=== PATIENT | female | born 1960 | race Caucasian/White ===

== ENCOUNTER 2017-12-11 12:15 | Inpatient (IN) | payer OTHER ==
[2017-12-11] MEDS ORDERED: ASPIRIN 325 MG TAB PO STA (12:52)
[2017-12-11 12:53] LABS: Basophils # (A) 0.1 k/uL (0-0.2); Basophils % (A) 1 %; Eosinophils # (A) 0.2 k/uL (0-0.7); Eosinophils % (A) 2 %; HCT 42.9 % (34.0-46.0); HGB 14.8 gm/dL (11.4-16.0); Lymphocytes % (A) 30 %; MCH 29.9 pg (25.0-35.0); MCHC 34.4 g/dL (31.0-37.0); MCV 86.8 fL (80.0-100.0); Mean Platelet Volume 7.4; Monocytes # (A) 0.6 k/uL (0-1.0); Monocytes % (A) 6 %; Neutrophils # (A) 6.1 k/uL (1.3-7.7); Neutrophils % (A) 60 %; Platelet Count 212 k/uL (150-450); RBC 4.95 m/uL (3.80-5.40); RDW 12.8 % (11.5-15.5); WBC 10.3 k/uL (3.8-10.6)
--- NOTE | 2017-12-11 12:57 | ED ---
General Adult HPI - General Chief complaint: Recheck/Abnormal Lab/Rx Stated complaint: Abnormal Cardiac Labs Time Seen by Provider: 12/11/17 12:22 Source: patient, RN notes reviewed, old records reviewed Mode of arrival: ambulatory Limitations: no limitations - History of Present Illness Initial comments: 57-year-old female presents with abnormal outpatient laboratory test. Patient was noted to have an elevated troponin by her primary care physician, this laboratory study was drawn yesterday. Was elevated at 9.57. Patient presents today for evaluation, she has had intermittent chest pain over the past one week. No history of coronary artery disease. Pain is described as a pressure both at rest and with exertion. Patient denies any pain complaints at the time my evaluation. She did have some associated dyspnea as well as diaphoresis which she attributed to her menopause. Patient is a current smoker. - Related Data Home Medications Medication Instructions Recorded Confirmed Albuterol Nebulized [Ventolin 2.5 mg INHALATION RT-QID PRN 12/11/17 12/11/17 Nebulized] Aspirin EC [Ecotrin Low Dose] 81 mg PO HS 12/11/17 12/11/17 Citalopram Hydrobromide [CeleXA] 10 mg PO HS 12/11/17 12/11/17 Cyclobenzaprine [Flexeril] 10 mg PO HS 12/11/17 12/11/17 Fluticasone Nasal [place] [Flonase 2 spr EA NOSTRIL DAILY 12/11/17 12/11/17 Nasal [place]] Omeprazole [PriLOSEC] 20 mg PO AC-BID 12/11/17 12/11/17 Allergies Allergy/AdvReac Type Severity Reaction Status Date / Time latex Allergy Rash/Hives Verified 12/11/17 13:11 Review of Systems ROS Statement: Those systems with pertinent positive or pertinent negative responses have been documented in the HPI. ROS Other: All systems not noted in ROS Statement are negative. Past Medical History Past Medical History: CVA/TIA Additional Past Medical History / Comment(s): right carotid stenosis History of Any Multi-Drug Resistant Organisms: None Reported Past Surgical History: Section, Cholecystectomy Past Psychological History: Anxiety, Depression Smoking Status: Current every day smoker Past Alcohol Use History: None Reported Past Drug Use History: None Reported General Exam Limitations: no limitations General appearance: alert, in no apparent distress Head exam: Present: atraumatic, normocephalic Eye exam: Present: normal appearance, PERRL ENT exam: Present: normal exam. Absent: normal oropharynx, mucous membranes dry Neck exam: Present: normal inspection. Absent: tenderness, meningismus Respiratory exam: Present: normal lung sounds bilaterally. Absent: respiratory distress, wheezes Cardiovascular Exam: Present: regular rate, normal rhythm. Absent: rubs GI/Abdominal exam: Present: soft. Absent: distended, tenderness, guarding Extremities exam: Present: normal inspection, normal capillary refill. Absent: pedal edema Back exam: Present: normal inspection Neurological exam: Present: alert, oriented X3, CN II-XII intact. Absent: motor sensory deficit Psychiatric exam: Present: normal affect, normal mood Skin exam: Present: warm, dry, intact. Absent: cyanosis, diaphoretic Course Vital Signs 12/11/17 12/11/17 12/11/17 12:16 13:10 13:51 Temperature 97.0 F L Pulse Rate 110 H 104 H 105 H Respiratory 18 18 18 Rate Blood Pressure 141/67 143/77 126/74 O2 Sat by Pulse 100 100 99 Oximetry EKG Findings - EKG Comments: EKG Findings:: EKG shows sinus tachycardia, rate of 108, AK interval 142, QS duration 74, QTC 471, there is Q waves in the inferior leads consistent with inferior infarction, no acute ST segment elevation or depression. Medical Decision Making - Medical Decision Making 57-year-old female presenting for evaluation of chest pain. Past week and elevated troponin on outpatient laboratory study testing. This was 9.57. Patient is chest pain-free at the time my evaluation. EKG does show Q waves in the inferior leads consistent with LA. There is no acute changes suggestive of current ischemia or infarction. CBC within normal limits, troponin within normal limits, troponin is 2.9 which is down trending. Chest x-ray negative. Case discussed with Dr. Morgan, recommends heparin, aspirin, Plavix, and echocardiogram. Patient will be admitted for further evaluation and treatment. - Lab Data Result diagrams: 12/11/17 12:40 12/11/17 12:40 Lab Results 12/11/17 12/11/17 12/11/17 Range/Units 12:40 12:40 12:40 WBC 10.3 (3.8-10.6) k/uL RBC 4.95 (3.80-5.40) m/uL Hgb 14.8 (11.4-16.0) gm/dL Hct 42.9 (34.0-46.0) % MCV 86.8 (80.0-100.0) fL MCH 29.9 (25.0-35.0) pg MCHC 34.4 (31.0-37.0) g/dL RDW 12.8 (11.5-15.5) % Plt Count 212 (150-450) k/uL Neutrophils % 60 % Lymphocytes % 30 % Monocytes % 6 % Eosinophils % 2 % Basophils % 1 % Neutrophils # 6.1 (1.3-7.7) k/uL Lymphocytes # 3.0 (1.0-4.8) k/uL Monocytes # 0.6 (0-1.0) k/uL Eosinophils # 0.2 (0-0.7) k/uL Basophils # 0.1 (0-0.2) k/uL PT (9.0-12.0) sec INR (<1.2) APTT (22.0-30.0) sec Sodium 137 (137-145) mmol/L Potassium 4.0 (3.5-5.1) mmol/L Chloride 102 (98-107) mmol/L Carbon Dioxide 24 (22-30) mmol/L Anion Gap 11 mmol/L BUN 16 (7-17) mg/dL Creatinine 0.90 (0.52-1.04) mg/dL Est GFR (MDRD) Af Amer >60 (>60 ml/min/1.73 sqM) Est GFR (MDRD) Non-Af >60 (>60 ml/min/1.73 sqM) Glucose 111 H (74-99) mg/dL Calcium 9.1 (8.4-10.2) mg/dL Total Bilirubin 0.5 (0.2-1.3) mg/dL AST 42 H (14-36) U/L ALT 22 (9-52) U/L Alkaline Phosphatase 80 (38-126) U/L Total Creatine Kinase 216 H (30-135) U/L CK-MB (CK-2) 13.0 H* (0.0-2.4) ng/mL CK-MB (CK-2) Rel Index 6.0 Troponin I 2.910 H* (0.000-0.034) ng/mL Total Protein 7.0 (6.3-8.2) g/dL Albumin 4.1 (3.5-5.0) g/dL 12/11/17 Range/Units 12:40 WBC (3.8-10.6) k/uL RBC (3.80-5.40) m/uL Hgb (11.4-16.0) gm/dL Hct (34.0-46.0) % MCV (80.0-100.0) fL MCH (25.0-35.0) pg MCHC (31.0-37.0) g/dL RDW (11.5-15.5) % Plt Count (150-450) k/uL Neutrophils % % Lymphocytes % % Monocytes % % Eosinophils % % Basophils % % Neutrophils # (1.3-7.7) k/uL Lymphocytes # (1.0-4.8) k/uL Monocytes # (0-1.0) k/uL Eosinophils # (0-0.7) k/uL Basophils # (0-0.2) k/uL PT 9.9 (9.0-12.0) sec INR 1.0 (<1.2) APTT 23.5 (22.0-30.0) sec Sodium (137-145) mmol/L Potassium (3.5-5.1) mmol/L Chloride (98-107) mmol/L Carbon Dioxide (22-30) mmol/L Anion Gap mmol/L BUN (7-17) mg/dL Creatinine (0.52-1.04) mg/dL Est GFR (MDRD) Af Amer (>60 ml/min/1.73 sqM) Est GFR (MDRD) Non-Af (>60 ml/min/1.73 sqM) Glucose (74-99) mg/dL Calcium (8.4-10.2) mg/dL Total Bilirubin (0.2-1.3) mg/dL AST (14-36) U/L ALT (9-52) U/L Alkaline Phosphatase (38-126) U/L Total Creatine Kinase (30-135) U/L CK-MB (CK-2) (0.0-2.4) ng/mL CK-MB (CK-2) Rel Index Troponin I (0.000-0.034) ng/mL Total Protein (6.3-8.2) g/dL Albumin (3.5-5.0) g/dL Critical Care Time Critical Care Time: Yes Total Critical Care Time: 35 Disposition Clinical Impression: NSTEMI (non-ST elevated myocardial infarction) Disposition: ADMITTED IP TO THIS [facility] Condition: Serious Referrals: Estefania Garg MD [Primary Care Provider] - 1-2 days Decision to Admit Reason: Admit from EC Decision Date: 12/11/17 Decision Time: 14:01
[2017-12-11 13:01] LABS: ALT 22 U/L (9-52); AST 42 U/L (14-36); Albumin 4.1 g/dL (3.5-5.0); Alkaline Phosphatase 80 U/L (38-126); Anion Gap 11 mmol/L; Blood Urea Nitrogen 16 mg/dL (7-17); Calcium 9.1 mg/dL (8.4-10.2); Carbon Dioxide 24 mmol/L (22-30); Chloride 102 mmol/L (98-107); Glucose 111 mg/dL (74-99); Sodium 137 mmol/L (137-145); Total Bilirubin 0.5 mg/dL (0.2-1.3)
[2017-12-11 13:05] LABS: Partial Thromboplastin Time 23.5 sec (22.0-30.0); Prothrombin Time 9.9 sec (9.0-12.0)
[2017-12-11] MEDS ORDERED: HEPARIN SODIUM,PORCINE 5,000 UNIT/ML 1 ML VIAL IV ONE (13:06)
[2017-12-11] MEDS ORDERED: HEPARIN SODIUM,PORCINE 5,000 UNIT/ML 1 ML VIAL IV PRN (13:06)
--- NOTE | 2017-12-11 13:07 | XR ---
EXAMINATION TYPE: XR chest 2V DATE OF EXAM: 12/11/2017 COMPARISON: 12/11/2009 HISTORY: 57-year-old female coughing congestion, altered mental status TECHNIQUE: PA and lateral views FINDINGS: The cardiomediastinal silhouette, aorta, and pulmonary vasculature are within normal limits. Mild hyp erinflation. No consolidation or pleural effusion. IMPRESSION: Mild hyperinflation may relate to depth of inspiration or underlying emphysema. No acute cardiopulmon hunter process.
[2017-12-11] MEDS: SODIUM CHLORIDE 0.9% 1,000 ML IV SCH (13:08)
[2017-12-11] MEDS ORDERED: ATORVASTATIN 80 MG TAB PO STA (13:21)
[2017-12-11] MEDS ORDERED: CLOPIDOGREL 75 MG TAB PO STA (13:21)
[2017-12-11 13:32] LABS: Troponin I 2.91 ng/mL (0.000-0.034)
[2017-12-11] MEDS: HEPARIN SOD,PORK IN 0.45% NACL 25,000 UNIT in 0.45% NACL 1 500ML.BAG IV SCH (13:46)
[2017-12-11] MEDS ORDERED: MORPHINE SULFATE 4 MG/ML SYRINGE IVP PRN (13:56)
[2017-12-11] MEDS ORDERED: NITROGLYCERIN SL TABS 0.4 MG TAB SUBLINGUAL PRN (13:56)
[2017-12-11] MEDS ORDERED: ALBUTEROL NEBULIZED 2.5 MG/3 ML INHALATION PRN (15:29)
--- NOTE | 2017-12-11 15:44 | P.HPIM ---
History of Present Illness H&P Date: 12/11/17 Chief Complaint: Chest pain This is a 57-year-old female, patient of Dr. Garg. She has a known past medical history of nicotine dependence, acid reflux and TIA. Patient presents to the emergency room after being notified about abnormal troponin level from outpatient laboratory tests. Patient went to see her PCP yesterday because she had been having episodes of intermittent chest pain since last Sunday. She thought that it was acid reflux problems. She was taking Tums with no improvement. Patient also reports having pain in the left shoulder and acid reflux-like symptoms going up into her neck. Patient also noted increasing chest pain in the center of her chest while cleaning the bathroom this morning. She was notified by her PCP this morning that her troponin level was elevated and needed to go to the emergency room. Troponin level was 9.57. She has no history of myocardial infarction or coronary artery disease. She does have a history of right internal carotid artery stenosis which is followed by her PCP. And she takes a daily baby aspirin. Patient also reports having episodes of diaphoresis but contributed it to her menopause. First troponin is 2.910. EKG shows sinus tachycardia with a heart rate of 108, anterior infarct age undetermined. Q waves are noted in the inferior leads. Cardiology consulted. Patient has been placed on IV heparin, aspirin, Plavix and Lipitor in the emergency room. An echocardiogram ordered. Patient denies any fever or chills. Denies cough, denies any bowel movement changes or urinary symptoms. Does report a family history with a mom who had a heart attack at age 60,dad who had a heart attack in his 70s and a brother who had a triple bypass in his 60s. Patient thinks she may have had a stress test about 10 years ago that was negative. Chest x-ray revealing mild hyperinflation may relate to depth of inspiration or underlying emphysema. No acute cardiopulmonary process Review of Systems Please refer to HPI otherwise unremarkable Past Medical History Past Medical History: CVA/TIA Additional Past Medical History / Comment(s): right carotid stenosis, TIA History of Any Multi-Drug Resistant Organisms: None Reported Past Surgical History: Section, Cholecystectomy Past Psychological History: Anxiety, Depression Smoking Status: Current every day smoker Past Alcohol Use History: None Reported Past Drug Use History: None Reported Medications and Allergies Home Medications Medication Instructions Recorded Confirmed Type Albuterol Nebulized [Ventolin 2.5 mg INHALATION RT-QID PRN 12/11/17 12/11/17 History Nebulized] Aspirin EC [Ecotrin Low Dose] 81 mg PO HS 12/11/17 12/11/17 History Citalopram Hydrobromide [CeleXA] 10 mg PO HS 12/11/17 12/11/17 History Cyclobenzaprine [Flexeril] 10 mg PO HS 12/11/17 12/11/17 History Fluticasone Nasal [place] [Flonase 2 spr EA NOSTRIL DAILY 12/11/17 12/11/17 History Nasal [place]] Omeprazole [PriLOSEC] 20 mg PO AC-BID 12/11/17 12/11/17 History Allergies Allergy/AdvReac Type Severity Reaction Status Date / Time latex Allergy Rash/Hives Verified 12/11/17 13:11 Physical Exam Vitals: Vital Signs Temp Pulse Resp BP Pulse Ox 12/11/17 14:38 98 18 129/76 99 12/11/17 13:51 105 H 18 126/74 99 12/11/17 13:10 104 H 18 143/77 100 12/11/17 12:16 97.0 F L 110 H 18 141/67 100 Intake and Output 12/11/17 12/11/17 12/11/17 06:59 14:59 22:59 Other: Weight 59.421 kg Patient Weight 12/12/17 06:59 Weight 59.421 kg Head normocephalic Neck supple Lungs clear to auscultation bilaterally no wheezing or crackles Heart regular rate and rhythm S1-S2, no rub or gallop Abdomen is soft nontender nondistended positive bowel sounds no hepatosplenomegaly Extremities no edema Neuro alert and orientated to 3 Results CBC & Chem 7: 12/11/17 12:40 12/11/17 12:40 Labs: Abnormal Lab Results - Last 24 Hours (Table) 12/11/17 12/11/17 Range/Units 12:40 12:40 Glucose 111 H (74-99) mg/dL AST 42 H (14-36) U/L Total Creatine Kinase 216 H (30-135) U/L CK-MB (CK-2) 13.0 H* (0.0-2.4) ng/mL Troponin I 2.910 H* (0.000-0.034) ng/mL Assessment and Plan Assessment: 1. Acute non-ST elevated myocardial infarction: Outpatient troponin level elevated at 9.57. On admission troponin 2.910 continue to monitor cardiac enzymes. Cardiology consulted. Patient is to continue IV heparin, Plavix, aspirin and Lipitor. Patient also started on beta miguelito in the emergency room 2. History of TIA continue aspirin 3. History of right internal carotid artery stenosis. Has carotid ultrasounds completed by her PCP and was told recently that there was no change 4. Generalized anxiety disorder and depression continue Celexa 5. GERD continue Protonix 6. Nicotine dependence: Discussed smoking cessation for greater than 3 minutes. Add nicotine patch Time with Patient: Greater than 30 (Greater than 50% of the total time spent in counseling and coordination of care.I performed an examination of the patient and discussed their management with the physician Machine Clipper. I have reviewed the Physician Machine Clipper's notes and agree with the documented findings and plan of care)
[2017-12-11] MEDS: NICOTINE 21MG/24HR PATCH TRANSDERM SCH (17:44)
[2017-12-11 20:10] LABS: Creatine Kinase MB 15.2 ng/mL (0.0-2.4)
[2017-12-11 20:11] LABS: Troponin I 5.26 ng/mL (0.000-0.034)
[2017-12-11] MEDS: METOPROLOL TARTRATE 25 MG TAB PO SCH (21:34)
[2017-12-11] MEDS: CITALOPRAM HYDROBROMIDE 10 MG TAB PO SCH (21:34)
[2017-12-11] MEDS: CYCLOBENZAPRINE 10 MG TAB PO SCH (21:34)
[2017-12-12 02:44] LABS: Creatine Kinase MB 11.9 ng/mL (0.0-2.4); Troponin I 5.92 ng/mL (0.000-0.034)
[2017-12-12] MEDS: SODIUM CHLORIDE 0.9% 1,000 ML IV SCH ×3 (05:41→15:55)
[2017-12-12 06:10] LABS: Basophils # (A) 0.1 k/uL (0-0.2); Basophils % (A) 1 %; Eosinophils # (A) 0.3 k/uL (0-0.7); Eosinophils % (A) 3 %; HCT 39.5 % (34.0-46.0); HGB 13.1 gm/dL (11.4-16.0); Lymphocytes # (A) 3.5 k/uL (1.0-4.8); Lymphocytes % (A) 39 %; MCH 29.2 pg (25.0-35.0); MCHC 33.1 g/dL (31.0-37.0); MCV 88.1 fL (80.0-100.0); Mean Platelet Volume 7.5; Monocytes # (A) 0.5 k/uL (0-1.0); Monocytes % (A) 6 %; Neutrophils # (A) 4.5 k/uL (1.3-7.7); Neutrophils % (A) 50 %; Platelet Count 190 k/uL (150-450); RBC 4.49 m/uL (3.80-5.40)
[2017-12-12 06:42] LABS: ALT 26 U/L (9-52); AST 43 U/L (14-36); Albumin 3.3 g/dL (3.5-5.0); Alkaline Phosphatase 77 U/L (38-126); Anion Gap 5 mmol/L; Blood Urea Nitrogen 13 mg/dL (7-17); Calcium 8.6 mg/dL (8.4-10.2); Carbon Dioxide 25 mmol/L (22-30); Chloride 109 mmol/L (98-107); Cholesterol 127 mg/dL (<200); Glucose 103 mg/dL (74-99); HDL Cholesterol 37 mg/dL (40-60); LDL Cholesterol,Calculated 73 mg/dL (0-99); Potassium 4.2 mmol/L (3.5-5.1); Sodium 139 mmol/L (137-145); Total Bilirubin 0.2 mg/dL (0.2-1.3); Total Protein 5.8 g/dL (6.3-8.2); Triglycerides 83 mg/dL (<150)
[2017-12-12] MEDS: METOPROLOL TARTRATE 25 MG TAB PO SCH ×2 (07:55→21:33)
[2017-12-12] MEDS: NICOTINE 21MG/24HR PATCH TRANSDERM SCH (07:55)
[2017-12-12] MEDS: FLUTICASONE 50MCG/SPRAY NASAL 16GM EA NOSTRIL SCH (07:56)
[2017-12-12] MEDS: PANTOPRAZOLE 40 MG TABLET PO SCH (07:57)
[2017-12-12] MEDS: CLOPIDOGREL 75 MG TAB PO SCH (07:59)
[2017-12-12] MEDS ORDERED: ASPIRIN 325 MG TAB PO SCH (09:00)
--- NOTE | 2017-12-12 09:24 | P.CRDCN ---
History of Present Illness Consult date: 12/12/17 Requesting physician: Karma Gonzalez Reason for Consult (text): NSTEMI Chief complaint: chest pain History of present illness: Pleasant 57-year-old female patient with history of smoking, currently smokes about a pack a day, TIA about 10 years ago and some right carotid stenosis which is being followed by her primary care physician. Developed some intermittent indigestion-like midsternal chest discomfort that radiated to her neck without any associated dyspnea, diaphoresis, dizziness or syncope. She presented to her primary care physician's office on Sunday, December 10 with complaints of the same at which time she was given Maalox with some relief and EKG was done and labs were drawn. She was called yesterday morning December 11 by her primary care physician to present to the emergency department due to elevated troponin of around 9. Upon presentation to the emergency department an EKG was done that showed sinus rhythm with Q waves in the inferior leads. Subsequent troponins were drawn and came back at 2.91, 5.26 and 5.92. Chest x-ray showed mild hyperinflation. At the time of my examination, patient is resting comfortably in bed. She denies any further complaints of the indigestion-like pain but has had some intermittent left lateral chest tightness. Past Medical History Past Medical History: CVA/TIA, GERD/Reflux, Osteoarthritis (OA) Additional Past Medical History / Comment(s): arthrits (neck)right carotid stenosis, TIA, recent sinus infections"took 4 rounds of abx and some steroids ) History of Any Multi-Drug Resistant Organisms: None Reported Past Surgical History: Appendectomy, Section, Cholecystectomy Additional Past Surgical History / Comment(s): x2 Past Anesthesia/Blood Transfusion Reactions: Previous Problems w/ Anesthesia Additional Past Anesthesia/Blood Transfusion Reaction / Comment(s): "spinal headache" lasted 12 hours Smoking Status: Current every day smoker - Past Family History Mother Family Medical History: Cancer, Coronary Artery Disease (CAD), Diabetes Mellitus , Myocardial Infarction (LA) Additional Family Medical History / Comment(s): leukemia Father Family Medical History: Coronary Artery Disease (CAD), CVA/TIA, Hypertension, Myocardial Infarction (LA) Additional Family Medical History / Comment(s): quad cabg and valve replacement Medications and Allergies Home Medications Medication Instructions Recorded Confirmed Type Albuterol Nebulized [Ventolin 2.5 mg INHALATION RT-QID PRN 12/11/17 12/11/17 History Nebulized] Aspirin EC [Ecotrin Low Dose] 81 mg PO HS 12/11/17 12/11/17 History Citalopram Hydrobromide [CeleXA] 10 mg PO HS 12/11/17 12/11/17 History Cyclobenzaprine [Flexeril] 10 mg PO HS 12/11/17 12/11/17 History Fluticasone Nasal [place] [Flonase 2 spr EA NOSTRIL DAILY 12/11/17 12/11/17 History Nasal [place]] Omeprazole [PriLOSEC] 20 mg PO AC-BID 12/11/17 12/11/17 History Allergies Allergy/AdvReac Type Severity Reaction Status Date / Time latex Allergy Rash/Hives Verified 12/11/17 13:11 Physical Exam Vitals: Vital Signs Temp Pulse Pulse Resp BP BP Pulse Ox 12/12/17 07:48 97 F L 71 18 136/74 93 L 12/12/17 04:15 87 18 12/12/17 04:10 97.5 F L 87 18 132/74 95 12/11/17 23:57 81 18 12/11/17 23:51 98.5 F 81 18 108/53 95 12/11/17 20:15 98.1 F 81 18 123/81 96 12/11/17 15:00 97.3 F L 101 H 18 142/88 97 12/11/17 14:38 98 18 129/76 99 12/11/17 13:51 105 H 18 126/74 99 12/11/17 13:10 104 H 18 143/77 100 12/11/17 12:16 97.0 F L 110 H 18 141/67 100 Intake and Output 12/11/17 12/12/17 12/12/17 22:59 06:59 14:59 Intake Total 351.466 Balance 351.466 Intake: Intake, IV Titration 111.466 Amount Heparin Sod,Pork in 0.45% 111.466 NaCl 25,000 unit In 0.45 % NaCl 1 500ml.bag @ 12 UNITS/KG/HR 14.26 mls/hr IV .Q24H [facility]INA Rx#: [id number] Oral 240 Other: Voiding Method Toilet Toilet # Voids 0 1 Weight 59.9 kg Patient Weight 12/13/17 06:59 Weight 59.9 kg PHYSICAL EXAMINATION: HEENT: Head is atraumatic, normocephalic. Pupils equal, round. Neck is supple. There is no elevated jugular venous pressure. HEART EXAMINATION: Heart sounds regular, S1 and S2 with a systolic ejection murmur heard at the base. CHEST EXAMINATION: Lungs are clear to auscultation and precussion. No chest wall tenderness is noted on palpation or with deep breathing. ABDOMEN: Soft, nontender. Bowel sounds are heard. No organomegaly noted. EXTREMITIES: 2+ peripheral pulses with no evidence of peripheral edema and no calf tenderness noted. NEUROLOGIC patient is awake, alert and oriented x3. . Results 12/12/17 05:33 12/12/17 05:33 Cardiac Enzymes 12/11/17 12/11/17 12/11/17 Range/Units 12:40 12:40 19:17 AST 42 H (14-36) U/L CK-MB (CK-2) 13.0 H* 15.2 H* (0.0-2.4) ng/mL Troponin I 2.910 H* 5.260 H* (0.000-0.034) ng/mL 12/12/17 12/12/17 Range/Units 01:25 05:33 AST 43 H (14-36) U/L CK-MB (CK-2) 11.9 H* (0.0-2.4) ng/mL Troponin I 5.920 H* (0.000-0.034) ng/mL Coagulation 12/11/17 12/11/17 12/12/17 Range/Units 12:40 19:17 01:25 PT 9.9 (9.0-12.0) sec APTT 23.5 43.4 H 58.0 H (22.0-30.0) sec 12/12/17 Range/Units 05:37 PT (9.0-12.0) sec APTT 63.1 H (22.0-30.0) sec Lipids 12/12/17 Range/Units 05:33 Triglycerides 83 (<150) mg/dL Cholesterol 127 (<200) mg/dL HDL Cholesterol 37 L (40-60) mg/dL CBC 12/11/17 12/12/17 Range/Units 12:40 05:33 WBC 10.3 9.0 (3.8-10.6) k/uL RBC 4.95 4.49 (3.80-5.40) m/uL Hgb 14.8 13.1 (11.4-16.0) gm/dL Hct 42.9 39.5 (34.0-46.0) % Plt Count 212 190 (150-450) k/uL Comprehensive Metabolic Panel 12/11/17 12/12/17 Range/Units 12:40 05:33 Sodium 137 139 (137-145) mmol/L Potassium 4.0 4.2 (3.5-5.1) mmol/L Chloride 102 109 H (98-107) mmol/L Carbon Dioxide 24 25 (22-30) mmol/L BUN 16 13 (7-17) mg/dL Creatinine 0.90 0.80 (0.52-1.04) mg/dL Glucose 111 H 103 H (74-99) mg/dL Calcium 9.1 8.6 (8.4-10.2) mg/dL AST 42 H 43 H (14-36) U/L ALT 22 26 (9-52) U/L Alkaline Phosphatase 80 77 (38-126) U/L Total Protein 7.0 5.8 L (6.3-8.2) g/dL Albumin 4.1 3.3 L (3.5-5.0) g/dL Current Medications Generic Name Dose Route Start Last Admin Trade Name Freq PRN Reason Stop Dose Admin Albuterol Sulfate 2.5 mg 12/11/17 15:29 Ventolin Nebulized INHALATION RT-QID PRN Shortness Of Breath Aspirin 325 mg 12/12/17 09:00 12/12/17 07:59 Aspirin PO 325 mg DAILY BETINA Administration Citalopram Hydrobromide 10 mg 12/11/17 21:00 12/11/17 21:34 Celexa PO 10 mg HS BETINA Administration Clopidogrel Bisulfate 75 mg 12/12/17 09:00 12/12/17 07:59 Plavix PO 75 mg DAILY BETINA Administration Cyclobenzaprine HCl 10 mg 12/11/17 21:00 12/11/17 21:34 Flexeril PO 10 mg HS BETINA Administration Fluticasone Propionate 2 spray 12/12/17 09:00 12/12/17 07:56 Flonase Nasal [place] EA NOSTRIL Not Given DAILY BETINA Heparin Sodium (Porcine) 0 unit 12/11/17 13:06 Heparin IV PER PROTOCOL PRN Low PTT Protocol Sodium Chloride 1,000 mls @ 75 mls/hr 12/11/17 13:00 12/12/17 05:41 Saline 0.9% IV 75 mls/hr .[id number] BETINA Administration Heparin Sodium/Sodium Chloride 500 mls @ 14.26 mls/hr 12/11/17 13:15 21:35 25,000 unit/ Sodium Chloride IV 14 units/kg/hr .Q24H [facility]INA 16.63 mls/hr Protocol Titration 12 UNITS/KG/HR Metoprolol Tartrate 25 mg 12/11/17 21:00 12/12/17 07:55 Lopressor PO 25 mg BID BETINA Administration Morphine Sulfate 2 mg 12/11/17 13:56 Morphine Sulfate (Inj) IVP Q5M PRN Chest Pain Nicotine 1 patch 12/11/17 15:30 12/12/17 07:55 Habitrol 21mg/24hr Patch TRANSDERM 1 patch DAILY BETINA Administration Nitroglycerin 0.4 mg 12/11/17 13:56 Nitrostat SUBLINGUAL Q5M PRN Chest Pain Pantoprazole Sodium 40 mg 12/12/17 07:30 12/12/17 07:57 Protonix PO 40 mg [id number] BETINA Administration Intake and Output 12/11/17 12/12/17 12/12/17 22:59 06:59 14:59 Intake Total 351.466 Balance 351.466 Intake: Intake, IV Titration 111.466 Amount Heparin Sod,Pork in 0.45% 111.466 NaCl 25,000 unit In 0.45 % NaCl 1 500ml.bag @ 12 UNITS/KG/HR 14.26 mls/hr IV .Q24H [facility] Rx#: [id number] Oral 240 Other: Voiding Method Toilet Toilet # Voids 0 1 Weight 59.9 kg Patient Weight 12/13/17 06:59 Weight 59.9 kg 12/12/17 05:33 12/12/17 05:33 EKG Interpretations (text) Sinus rhythm with evidence of prior inferior LA Assessment and Plan Assessment: #1 non-ST elevated LA with a troponin of around 9 two days ago at her primary care physician's office, most recent troponin of 5.9 #2 nicotine dependence #3 history of TIA #4 History of right carotid stenosis Plan: From steeping press tender perspective, we will continue IV heparin. We will review the 2-D echo with Doppler. Patient will go cardiac catheterization by Dr. TUCKER Morgan today. Discussed in detail risks, including infection, bleeding, stroke, LA and damage to artery as well as benefits in detail with the patient. She is in agreement. Further recommendations depending on findings of a catheterization and patient's clinical course. RANGE RIDER note has been reviewed, I agree with a documented findings and plan of care. Patient was seen and examined.
[2017-12-12] MEDS ORDERED: ATORVASTATIN 80 MG TAB PO STA (09:48)
[2017-12-12] MEDS ORDERED: ALPRAZolam 0.25 MG TAB PO PRN (09:48)
[2017-12-12] MEDS ORDERED: ALPRAZolam 0.5 MG TAB PO PRN (09:48)
[2017-12-12 11:49] LABS: Glucose,Whole Blood 85 mg/dL (75-99)
--- NOTE | 2017-12-12 11:53 | ECHOF ---
Referral Reason:CP/NSTEMI MEASUREMENTS -------- HEIGHT: 152.4 cm WEIGHT: 59.4 kg BP: 126/74 RVIDd: 2.4 cm (< 3.3) IVSd: 1.2 cm (0.6 - 1.1) LVIDd: 3.7 cm (3.9 - 5.3) LVPWd: 1.2 cm (0.6 - 1.1) IVSs: 1.5 cm LVIDs: 2.8 cm LVPWs: 1.5 cm LAESV Index (A-L): 17.11 ml/m Ao Diam: 2.6 cm (2.0 - 3.7) AV Cusp: 0.9 cm (1.5 - 2.6) LA Diam: 3.6 cm (2.7 - 3.8) MV E Johnathon: 0.89 m/s MV DecT: 381 ms MV A Johnathon: 1.64 m/s MV E/A Ratio: 0.54 AV maxP.42 mmHg AV meanP.21 mmHg RAP: 5.00 mmHg RVSP: 15.67 mmHg FINDINGS -------- Sinus rhythm. This was a technically adequate study. The left ventricular size is normal. There is mild concentric left ventricular hypertrophy. Overa ll left ventricular systolic function is low-normal with, an EF between 50 - 55 %. The right ventricle is normal in size and function. Normal LA size by volume 22+/-6 ml/m2. The right atrium is normal in size. Aortic valve is trileaflet and is moderately thickened. Trace to mild aortic regurgitation. There is mild aortic stenosis present. Peak/mean gradient across the Aortic Valve is 24.42mmHg / 14.21mm Hg. The mitral valve leaflets are mildly thickened. There is trace to mild mitral regurgitation. Trace tricuspid regurgitation present. Right ventricular systolic pressure is normal at < 35 mmHg. There is no evidence of pulmonary hypertension. The pulmonic valve was not well visualized. The aortic root size is normal. Normal inferior vena cava with normal inspiratory collapse consistent with estimated right atrial pre ssure of 5 mmHg. There is a small, generalized pericardial effusion present. CONCLUSIONS -------- 1. Sinus rhythm. 2. This was a technically adequate study. 3. The left ventricular size is normal. 4. There is mild concentric left ventricular hypertrophy. 5. Overall left ventricular systolic function is low-normal with, an EF between 50 - 55 %. 6. Normal LA size by volume 22+/-6 ml/m2. 7. Aortic valve is trileaflet and is moderately thickened. 8. Trace to mild aortic regurgitation. 9. There is mild aortic stenosis present. 10. Peak/mean gradient across the Aortic Valve is 24.42mmHg / 14.21mmHg. 11. The mitral valve leaflets are mildly thickened. 12. There is trace to mild mitral regurgitation. 13. Trace tricuspid regurgitation present. 14. Right ventricular systolic pressure is normal at < 35 mmHg. 15. There is no evidence of pulmonary hypertension. 16. The pulmonic valve was not well visualized. 17. The aortic root size is normal. CLASSROOM TEACHER: Titus King RDCS
[2017-12-12] MEDS ORDERED: LIDOCAINE 2% INJ 20 MG/ML (20 ML MDV) ONE (13:02)
[2017-12-12] MEDS ORDERED: MIDAZOLAM 2 MG/2 ML VIAL ONE (13:16)
[2017-12-12] MEDS ORDERED: diphenhydrAMINE 50 MG/ML 1 ML VIAL ONE (13:16)
[2017-12-12] MEDS ORDERED: SODIUM CHLORIDE 0.9% 500 ML IV ONE (13:25)
[2017-12-12] MEDS ORDERED: MIDAZOLAM 2 MG/2 ML VIAL IV ONE (13:43)
[2017-12-12] MEDS ORDERED: diphenhydrAMINE 50 MG/ML 1 ML VIAL IVP ONE (13:43)
[2017-12-12] MEDS ORDERED: LIDOCAINE 2% INJ 20 MG/ML SQ ONE (13:47)
[2017-12-12] MEDS ORDERED: BIVALIRUDIN BOLUS 250 MG/50 ML IV ONE (14:00)
[2017-12-12] MEDS ORDERED: BIVALIRUDIN 250 MG in SODIUM CHLORIDE 0.9% 50 ML IV ONE (14:03)
[2017-12-12] MEDS: NITROGLYCERIN 1000MCG/10ML SYRINGE INTRACORON ONE ×2 (14:08→14:20)
[2017-12-12] MEDS ORDERED: CLOPIDOGREL 75 MG TAB ONE (14:17)
[2017-12-12] MEDS ORDERED: CLOPIDOGREL 75 MG TAB PO ONE (14:20)
[2017-12-12] MEDS ORDERED: niCARdipine 25 MG/10 ML VIAL ONE (14:20)
[2017-12-12] MEDS ORDERED: niCARdipine Syringe (1,000 mcg/10 mL) INTRACORON ONE (14:23)
[2017-12-12] MEDS ORDERED: amLODIPine 5 MG TAB ONE (14:24)
[2017-12-12] MEDS ORDERED: MAG HYDROX/AL HYDROX/SIMETH 30 ML CUP PO PRN (14:34)
[2017-12-12] MEDS ORDERED: ATROPINE SULFATE 0.1 MG/ML 10ML SYRINGE IV PRN (14:34)
[2017-12-12] MEDS ORDERED: NITROGLYCERIN SL TABS 0.4 MG TAB SUBLINGUAL PRN (14:34)
[2017-12-12] MEDS ORDERED: ZOLPIDEM 5 MG TAB PO PRN (14:34)
[2017-12-12] MEDS ORDERED: RX INFO: IV CONTRAST WAS GIVEN 1 EACH MISC MISCELLANE PRN (14:34)
[2017-12-12] MEDS ORDERED: IOHEXOL 350 MG/ML (PER ML) 100ML BTL INJ ONE (14:41)
[2017-12-12] MEDS ORDERED: IODIXANOL 320 MG/ML 100 ML INTRAARTER ONE (14:41)
[2017-12-12] MEDS ORDERED: HYDROcodone/APAP 5-325MG 1 EACH TAB PO PRN (15:10)
--- NOTE | 2017-12-12 15:19 | CC ---
CARDIAC CATHETERIZATION REPORT DATE OF SERVICE: 12/12/2017. PROCEDURE: 1. Left heart catheterization, coronary angiography. 2. PTCA and stenting of a mid dominant RCA with a drug-eluting stent. PERFORMED BY: Dr. Katina Morgan. Moderate conscious sedation time about 45 minutes. Patient was monitored closely. Oxygen saturation, vital signs and rhythm strips were watched closely. CLINICAL INFORMATION: Olivia Baez is a 57-year-old lady who weighs about 60 kg. She smokes a pack a day. Has also some bronchial asthma. She takes some inhalers. No other medicines. She went to her family doctor with complaints of nondescript, left-sided chest pain. She was sent home after obtaining a troponin level that was checked later and then she was asked to go to the emergency room. She did have chest pain but on arrival to the ER, her pain was pretty much all gone. She complained of a nondescript achy sensation in the chest when I saw her this morning. Her troponin was up to 9. It came back down and it was hovering around 5.2 today. She was hemodynamically stable and comfortable. She was counseled regarding the need to quit smoking. She was advised coronary angiography and PCI. She understood all the risks, benefits, options and wished to proceed. PROCEDURE NOTE: Under local anesthesia and strict aseptic precautions, a 6-St Helenian introducer was placed in the right femoral artery. Using standard Joyce catheters, I performed coronary angiography. Using a pigtail catheter, I checked LV pressures. I did not perform an LV-gram. Following this, I went ahead and performed PCI of a mid RCA lesion. At the end of the procedure, an Angio-Seal device with secure hemostasis and she was sent to the room in a stable condition. Results were discussed with the patient, but there was no other family members available. Mid RCA had a significant lesion with a thrombus and this was addressed with a drug-eluting stent, which was a Xience 3.0 caliber 15 mm length. CARDIAC CATHETERIZATION FINDINGS: 1. RIGHT CORONARY ARTERY: Large dominant vessel in the midportion before bifurcation, there is an eccentric 80% stenosis with thrombus and after this stenosis, the flow is very sluggish and the vessels look much smaller distally. In the proximal 1/3, there is a diffuse area of narrowing of anywhere from 30% to 45%. RCA is a dominant vessel. After bifurcation, both the vessels are large in caliber, the PDA and PLV and sizable amount of myocardium. 2. LEFT MAIN CORONARY ARTERY: This is a short patent vessel free of significant disease that immediately bifurcates into LAD and circumflex. 3. LEFT ANTERIOR DESCENDING CORONARY ARTERY: Good caliber vessel extends along the anterior wall and gives off smaller diagonal branches proximally. In the midportion, it gives off a small diagonal branch and then there is an eccentric 40% narrowing after which the caliber improves and vessel runs all the way to the apex supplying a sizable amount of myocardium. The LAD, therefore in the midportion has a 40% lesion, but no other significant disease. There are minor irregularities in the distal 1/3. 4. LEFT POSTERIOR CIRCUMFLEX CORONARY ARTERY: Technically nondominant vessel, gives off a large obtuse marginal that runs laterally and then a branch in the AV groove. No significant disease. 5. Left ventriculogram was not performed. The left ventricular end-diastolic pressure was about 18 to 20 mmHg without any gradient across the aortic valve. PCI DETAILS: A standard right Joyce type guide catheter was used to cannulate the right coronary artery. A BMW wire was used to cross the lesion. Patient received Angiomax bolus and infusion as per protocol; 450 mg of Plavix was given. Patient weighs about 60 kg and she already received 150 Plavix in the last 12 hours. I used a 2.5 caliber 12 mm Trek balloon to pre-dilate the lesion. After nitroglycerin, the vessel looked very large. A 3.0 caliber 15 mm long Xience stent was deployed with excellent angiographic result. Patient had EKG changes, but off ST elevation in inferior leads without significant chest pain. Excellent angiographic result was achieved. Results were discussed with the patient. Smoking cessation issues were discussed and she will be sent to the room in a stable condition. MMODL / IJN: [id number] /
--- NOTE | 2017-12-12 15:22 | LTR ---
DATE OF SERVICE: 12/12/2016 RE: Olivia Baez Dear Dr. Garg: Thank you for the opportunity to participate in the care of Mrs. Olivia Baez. I am pleased to report to you that she had an excellent angiographic result. Her 80% RCA was addressed with a drug-eluting stent with excellent result. The echocardiogram did not reveal any significant LV dysfunction. Continued medical therapy with risk factor modification is advised and I expect to discharge the patient tomorrow. She has been counseled regarding the need to quit smoking. Thank you for a referral and please call for questions. With kindest regards, Sincerely yours, MD CARISSA JohnsonL / ERICHN: [id number] /
[2017-12-12] MEDS ORDERED: MORPHINE ORAL SOLN 10 MG/5 ML CUP PO PRN (15:29)
[2017-12-12] MEDS: HEPARIN SOD,PORK IN 0.45% NACL 25,000 UNIT in 0.45% NACL 1 500ML.BAG IV SCH (15:38)
[2017-12-12] MEDS: LOSARTAN 50 MG TAB PO SCH (15:54)
--- NOTE | 2017-12-12 16:21 | P.PN ---
Subjective Patient is doing well today. No events overnight. Objective - Vital Signs Vital signs: Vital Signs Temp 97.8 F 12/12/17 14:34 Pulse 88 12/12/17 15:19 Resp 20 12/12/17 14:34 BP 143/88 12/12/17 15:19 Pulse Ox 95 12/12/17 15:19 Intake & Output 12/11/17 12/12/17 12/12/17 18:59 06:59 18:59 Intake Total 240 111.466 341 Output Total 200 Balance 240 111.466 141 Weight 59.421 kg 59.9 kg Intake: IV 341 Heparin Sod,Pork in 0.45% 42 NaCl 25,000 unit In 0.45 % NaCl 1 500ml.bag @ 12 UNITS/KG/HR 14.26 mls/hr IV .Q24H BETINA Rx#: [id number] Sodium Chloride 0.9% 1, 225 000 ml @ 75 mls/hr IV . [id number] BETINA Rx#:[id number] Intake, IV Titration 111.466 Amount Heparin Sod,Pork in 0.45% 111.466 NaCl 25,000 unit In 0.45 % NaCl 1 500ml.bag @ 12 UNITS/KG/HR 14.26 mls/hr IV .Q24H BETINA Rx#: [id number] Oral 240 Output: Urine 200 Other: Voiding Method Toilet Toilet Toilet # Voids 0 1 2 - Exam General: The patient is awake and alert, in no distress Eye: there is normal conjunctiva bilaterally. Neck: The neck is supple, there is no JVD. Cardiovascular: Normal S1-S2, no S3-S4, no murmurs. Respiratory: Lungs clear to auscultation bilaterally Gastrointestinal: Abdomen is soft, nontender Musculoskeletal: There is no pedal edema. Neurological:. Speech is normal. Skin: Skin is warm and dry - Labs CBC & Chem 7: 12/12/17 05:33 12/12/17 05:33 Labs: Abnormal Lab Results - Last 24 Hours (Table) 12/11/17 12/11/17 12/12/17 Range/Units 19:17 19:17 01:25 APTT 43.4 H (22.0-30.0) sec Chloride (98-107) mmol/L Glucose (74-99) mg/dL AST (14-36) U/L Total Creatine Kinase 240 H 212 H (30-135) U/L CK-MB (CK-2) 15.2 H* 11.9 H* (0.0-2.4) ng/mL Troponin I 5.260 H* 5.920 H* (0.000-0.034) ng/mL Total Protein (6.3-8.2) g/dL Albumin (3.5-5.0) g/dL HDL Cholesterol (40-60) mg/dL 12/12/17 12/12/17 12/12/17 Range/Units 01:25 05:33 05:37 APTT 58.0 H 63.1 H (22.0-30.0) sec Chloride 109 H (98-107) mmol/L Glucose 103 H (74-99) mg/dL AST 43 H (14-36) U/L Total Creatine Kinase (30-135) U/L CK-MB (CK-2) (0.0-2.4) ng/mL Troponin I (0.000-0.034) ng/mL Total Protein 5.8 L (6.3-8.2) g/dL Albumin 3.3 L (3.5-5.0) g/dL HDL Cholesterol 37 L (40-60) mg/dL Assessment and Plan Assessment: 1. Acute non-ST elevated myocardial infarction: Status post left heart catheterization with 80% stenosis to RCA status post drug-eluting stent. We will continue optimal medical management. Echocardiogram showed preserved EF. 2. History of TIA continue aspirin 3. History of right internal carotid artery stenosis. 4. Generalized anxiety disorder and depression continue Celexa 5. GERD continue Protonix
[2017-12-12 16:41] LABS: Glucose,Whole Blood 91 mg/dL (75-99)
[2017-12-12] MEDS ORDERED: amLODIPine 5 MG TAB PO SCH (21:00)
[2017-12-12] MEDS ORDERED: ATORVASTATIN 40 MG TAB PO SCH (21:00)
[2017-12-12] MEDS: CITALOPRAM HYDROBROMIDE 10 MG TAB PO SCH (21:32)
[2017-12-12] MEDS: CYCLOBENZAPRINE 10 MG TAB PO SCH (21:33)
[2017-12-13] MEDS: SODIUM CHLORIDE 0.9% 1,000 ML IV SCH ×2 (05:26)
[2017-12-13] MEDS: PANTOPRAZOLE 40 MG TABLET PO SCH (06:12)
[2017-12-13 06:29] LABS: Basophils # (A) 0.1 k/uL (0-0.2); Basophils % (A) 1 %; Eosinophils # (A) 0.2 k/uL (0-0.7); Eosinophils % (A) 3 %; HCT 37.6 % (34.0-46.0); HGB 12.2 gm/dL (11.4-16.0); Lymphocytes # (A) 3.1 k/uL (1.0-4.8); Lymphocytes % (A) 36 %; MCH 28.8 pg (25.0-35.0); MCHC 32.4 g/dL (31.0-37.0); MCV 88.8 fL (80.0-100.0); Mean Platelet Volume 7.8; Monocytes # (A) 0.5 k/uL (0-1.0); Monocytes % (A) 6 %; Neutrophils # (A) 4.5 k/uL (1.3-7.7); Neutrophils % (A) 52 %; Platelet Count 193 k/uL (150-450); RBC 4.23 m/uL (3.80-5.40); WBC 8.5 k/uL (3.8-10.6)
[2017-12-13 06:35] LABS: ALT 26 U/L (9-52); AST 25 U/L (14-36); Albumin 3.1 g/dL (3.5-5.0); Alkaline Phosphatase 69 U/L (38-126); Anion Gap 7 mmol/L; Blood Urea Nitrogen 11 mg/dL (7-17); Calcium 8.3 mg/dL (8.4-10.2); Carbon Dioxide 25 mmol/L (22-30); Chloride 110 mmol/L (98-107); Glucose 91 mg/dL (74-99); Potassium 4.1 mmol/L (3.5-5.1); Sodium 142 mmol/L (137-145); Total Bilirubin 0.3 mg/dL (0.2-1.3); Total Protein 5.4 g/dL (6.3-8.2)
[2017-12-13 08:20] VITALS: RESP 16
[2017-12-13] MEDS ORDERED: ASPIRIN 81 MG PO SCH (09:00)
[2017-12-13] MEDS: CLOPIDOGREL 75 MG TAB PO SCH (09:23)
[2017-12-13] MEDS: METOPROLOL TARTRATE 25 MG TAB PO SCH (09:23)
[2017-12-13] MEDS: NICOTINE 21MG/24HR PATCH TRANSDERM SCH (09:26)
[2017-12-13] MEDS: FLUTICASONE 50MCG/SPRAY NASAL 16GM EA NOSTRIL SCH (09:26)
[2017-12-13] MEDS: LOSARTAN 50 MG TAB PO SCH (10:26)
[2017-12-13 12:08] VITALS: BP 129/81; PULSE 81; TEMP 97
--- NOTE | 2017-12-13 12:41 | PN ---
PROGRESS NOTE This lady presented somewhat late after non-STEMI, had a tight lesion in the mid RCA that was stented yesterday with a good result. She has a moderate disease in the proximal RCA as well. She smokes and I have counseled regarding the importance of smoking cessation, risk factor modification. This morning, she is doing well. Her EKG is unremarkable. Laboratory data is good. Her right groin is clean and dry with a good pulse. Her lipid profile also revealed LDL of only 73, a total cholesterol of 127. She has been up and about, ambulating without symptoms. I am recommending that she can be discharged. Discharge instructions regarding activity, diet, medications were given. I will see her on Sunday late at 4:15 or so. She was advised regarding activity, followup appointment, smoking cessation, risk factor modification. Physical exam revealed blood pressure of 130/70, pulse rate is about 84 per minute. I am increasing the metoprolol to 25 mg t.i.d. S1-S2 heard normally. Lungs are clear. Abdomen and lower exam unchanged. Right groin is clean and dry. I will see her in the office next Sunday. Discharge instructions were given. MMODL / IJN: [id number] /
[2017-12-13 13:12] VITALS: BMI 26.2
--- NOTE | 2017-12-13 13:22 | P.DS ---
Providers Date of admission: 12/11/17 13:56 Expected date of discharge: 12/13/17 Attending physician: Karma Gonzalez Consults: 12/11/17 13:56 Consult Physician Urgent Consulting Provider: Yevgeniy Morgan Consult Reason/Comments: NSTEMI Do you want consulting provider notified?: Already Contacted 12/12/17 14:34 Consult Physician Routine Consulting Provider: [facility] Consult Reason/Comments: Post Interventional patient Do you want consulting provider notified?: Already Contacted Primary care physician: Estefania [facility] Course: 1. Acute non-ST elevated myocardial infarction: Status post left heart catheterization with 80% stenosis to RCA status post drug-eluting stent. We will continue optimal medical management. Echocardiogram showed preserved EF. 2. History of TIA continue aspirin 3. History of right internal carotid artery stenosis. 4. Generalized anxiety disorder and depression continue Celexa 5. GERD continue Protonix. 6. Tobacco abuse: Counseled to quit. Given prescription for nicotine patch. Patient will follow-up with her third steel pourer and he has directed Patient Condition at Discharge: Serious Plan - Discharge Summary Discharge Rx Participant: Yes New Discharge Prescriptions: New amLODIPine [Norvasc] 5 mg PO HS #30 tab Aspirin 81 mg PO DAILY #30 chew Atorvastatin [Lipitor] 40 mg PO HS #30 tab Clopidogrel [Plavix] 75 mg PO DAILY #30 tab Losartan [Cozaar] 50 mg PO DAILY #30 tab Metoprolol Tartrate [Lopressor] 25 mg PO BID #60 tab Nicotine 21Mg/24Hr Patch [Habitrol] 1 patch TRANSDERM DAILY #30 patch Nitroglycerin Sl Tabs [Nitrostat] 0.4 mg SUBLINGUAL Q5M PRN #25 tab PRN Reason: Chest Pain Continue Omeprazole [PriLOSEC] 20 mg PO AC-BID Fluticasone Nasal [place] [Flonase Nasal [place]] 2 spr EA NOSTRIL DAILY Cyclobenzaprine [Flexeril] 10 mg PO HS Citalopram Hydrobromide [CeleXA] 10 mg PO HS Albuterol Nebulized [Ventolin Nebulized] 2.5 mg INHALATION RT-QID PRN PRN Reason: Shortness Of Breath Discontinued Aspirin EC [Ecotrin Low Dose] 81 mg PO HS Discharge Medication List Albuterol Nebulized [Ventolin Nebulized] 2.5 mg INHALATION RT-QID PRN 12/11/17 [ History] Citalopram Hydrobromide [CeleXA] 10 mg PO HS 12/11/17 [History] Cyclobenzaprine [Flexeril] 10 mg PO HS 12/11/17 [History] Fluticasone Nasal [place] [Flonase Nasal [place]] 2 spr EA NOSTRIL DAILY 12/11/17 [ History] Omeprazole [PriLOSEC] 20 mg PO AC-BID 12/11/17 [History] Aspirin 81 mg PO DAILY #30 chew 12/13/17 [Rx] Atorvastatin [Lipitor] 40 mg PO HS #30 tab 12/13/17 [Rx] Clopidogrel [Plavix] 75 mg PO DAILY #30 tab 12/13/17 [Rx] Losartan [Cozaar] 50 mg PO DAILY #30 tab 12/13/17 [Rx] Metoprolol Tartrate [Lopressor] 25 mg PO BID #60 tab 12/13/17 [Rx] Nicotine 21Mg/24Hr Patch [Habitrol] 1 patch TRANSDERM DAILY #30 patch 12/13/17 [ Rx] Nitroglycerin Sl Tabs [Nitrostat] 0.4 mg SUBLINGUAL Q5M PRN #25 tab 12/13/17 [Rx ] amLODIPine [Norvasc] 5 mg PO HS #30 tab 12/13/17 [Rx] Follow up Appointment(s)/Referral(s): Yevgeniy Morgan MD [STAFF PHYSICIAN] - 12/17/17 4:00 pm Estefania Gagr MD [Primary Care Provider] - 12/17/17 9:00 am (With Miladis Avila NP.) Patient Instructions/Handouts: *[facility] - After Heart Catheterization - Senior Ssis Developer Instructions, Heart Healthy Diet (DC), Coronary Intravascular Stent Placement (DC) Discharge Disposition: HOME SELF-CARE
[2017-12-13] MEDS ORDERED: METOPROLOL TARTRATE 25 MG TAB PO SCH (16:00)
== END 2017-12-13 16:00 | disposition home or self-care (01) | DRG 247 ==
LOC: EC 12:15 → 6SEL 13:56
PROVIDERS: ADMIT Internal Medicine; ATTEND Internal Medicine
PROC: B2111ZZ Fluoroscopy of Multiple Coronary Arteries using Low Osmolar Contrast (ICD-10-PCS; principal; 2017-12-12 13:00)
PROC: 4A023N7 Measurement of Cardiac Sampling and Pressure, Left Heart, Percutaneous Approach (ICD-10-PCS; principal; 2017-12-12 13:00)
PROC: 027034Z Dilation of Coronary Artery, One Artery with Drug-eluting Intraluminal Device, Percutaneous Approach (ICD-10-PCS; principal; 2017-12-12 13:00)
DX: I21.4 Non-ST elevation (NSTEMI) myocardial infarction (principal); I65.21 Occlusion and stenosis of right carotid artery; F17.200 Nicotine dependence, unspecified, uncomplicated; I25.10 Atherosclerotic heart disease of native coronary artery without angina pectoris; F32.9 Major depressive disorder, single episode, unspecified; F41.1 Generalized anxiety disorder; J43.9 Emphysema, unspecified; K21.9 Gastro-esophageal reflux disease without esophagitis; Z79.899 Other long term (current) drug therapy; Z80.6 Family history of leukemia; Z82.49 Family history of ischemic heart disease and other diseases of the circulatory system; Z83.3 Family history of diabetes mellitus; Z86.73 Personal history of transient ischemic attack (TIA), and cerebral infarction without residual deficits; Z91.040 Latex allergy status; Z79.82 Long term (current) use of aspirin; Z79.51 Long term (current) use of inhaled steroids; Z71.6 Tobacco abuse counseling
CPT/HCPCS: 36415; 71046; 80053; 80061; 82550; 82553; 84484; 85025; 85610; 85730; 93005; 93306; 93458; 94760; 96361; 96365; 96376; 99285

== ENCOUNTER → 2018-02-13 | Outpatient (CLI) | payer OTHER ==
[2018-02-13 10:06] LABS: T4, Free (Free Thyroxine) 0.95 ng/dL (0.78-2.19)
== END | disposition home or self-care (01) ==
LOC: LABWHC1 09:09
PROVIDERS: ATTEND Internal Medicine Interventional Cardiology
DX: I25.10 Atherosclerotic heart disease of native coronary artery without angina pectoris (principal); E78.5 Hyperlipidemia, unspecified
CPT/HCPCS: 36415; 80061; 82550; 84439; 84443; 84450; 84460

== ENCOUNTER 2018-12-19 19:08 | Observation (INO) | payer OTHER ==
[2018-12-19 19:53] LABS: Basophils # (A) 0.1 k/uL (0-0.2); Basophils % (A) 1 %; Eosinophils # (A) 0.4 k/uL (0-0.7); Eosinophils % (A) 4 %; HCT 42.3 % (34.0-46.0); Lymphocytes % (A) 34 %; MCH 28.9 pg (25.0-35.0); MCV 87.5 fL (80.0-100.0); Mean Platelet Volume 7.4; Monocytes # (A) 0.6 k/uL (0-1.0); Monocytes % (A) 5 %; Neutrophils # (A) 6.6 k/uL (1.3-7.7); Neutrophils % (A) 56 %; Platelet Count 244 k/uL (150-450); RBC 4.84 m/uL (3.80-5.40); RDW 13.3 % (11.5-15.5); WBC 11.9 k/uL (3.8-10.6)
--- NOTE | 2018-12-19 19:58 | ED ---
General Adult HPI - General Chief complaint: Chest Pain Stated complaint: Chest pain Time Seen by Provider: 12/19/18 19:31 Source: patient, RN notes reviewed, old records reviewed Mode of arrival: wheelchair Limitations: no limitations - History of Present Illness Initial comments: 58-year-old female presents for evaluation of chest pain. Patient has history of CAD status post SD approximately one year ago. She's had intermittent chest pain throughout the day today. Describes it as substernal pain which lasts several seconds. She has some mild residual pain after this onset. No nausea vomiting. No diaphoresis. No abdominal pain. Patient's previous SD she described indigestion and epigastric pain. She denies these symptoms today. She has been compliant with her medications which include aspirin and Plavix. No lower extremity swelling or pain. - Related Data Home Medications Medication Instructions Recorded Confirmed Albuterol Nebulized [Ventolin 2.5 mg INHALATION RT-QID PRN 12/11/17 12/19/18 Nebulized] Citalopram Hydrobromide [CeleXA] 10 mg PO HS 12/11/17 12/19/18 Cyclobenzaprine [Flexeril] 10 mg PO HS 12/11/17 12/19/18 Fluticasone Nasal [place] [Flonase 2 spr EA NOSTRIL DAILY 12/11/17 12/19/18 Nasal [place]] Omeprazole [PriLOSEC] 20 mg PO DAILY 12/11/17 12/19/18 Aspirin 81 mg PO BID 12/19/18 12/19/18 Metoprolol Tartrate [Lopressor] 50 mg PO HS 12/19/18 12/19/18 Metoprolol Tartrate [Lopressor] 75 mg PO QAM 12/19/18 12/19/18 Previous Rx's Medication Instructions Recorded Atorvastatin [Lipitor] 40 mg PO HS #30 tab 12/13/17 Clopidogrel [Plavix] 75 mg PO DAILY #30 tab 12/13/17 Nitroglycerin Sl Tabs [Nitrostat] 0.4 mg SUBLINGUAL Q5M PRN #25 tab 12/13/17 amLODIPine [Norvasc] 5 mg PO HS #30 tab 12/13/17 Allergies Allergy/AdvReac Type Severity Reaction Status Date / Time latex Allergy Rash/Hives Verified 12/19/18 20:15 losartan Allergy Rash/Hives Verified 12/19/18 20:15 Review of Systems ROS Statement: Those systems with pertinent positive or pertinent negative responses have been documented in the HPI. ROS Other: All systems not noted in ROS Statement are negative. Past Medical History Past Medical History: CVA/TIA, GERD/Reflux, Osteoarthritis (OA) Additional Past Medical History / Comment(s): arthrits (neck)right carotid stenosis, TIA, recent sinus infections"took 4 rounds of abx and some steroids ) History of Any Multi-Drug Resistant Organisms: None Reported Past Surgical History: Appendectomy, Section, Cholecystectomy Additional Past Surgical History / Comment(s): x2 Past Anesthesia/Blood Transfusion Reactions: Previous Problems w/ Anesthesia Additional Past Anesthesia/Blood Transfusion Reaction / Comment(s): "spinal headache" lasted 12 hours Past Psychological History: Anxiety, Depression Smoking Status: Current every day smoker - Past Family History Mother Family Medical History: Cancer, Coronary Artery Disease (CAD), Diabetes Mellitus , Myocardial Infarction (SD) Additional Family Medical History / Comment(s): leukemia Father Family Medical History: Coronary Artery Disease (CAD), CVA/TIA, Hypertension, Myocardial Infarction (SD) Additional Family Medical History / Comment(s): quad cabg and valve replacement General Exam Limitations: no limitations General appearance: alert, in no apparent distress Head exam: Present: atraumatic, normocephalic Eye exam: Present: normal appearance, PERRL, EOMI ENT exam: Present: normal exam Neck exam: Present: normal inspection. Absent: tenderness, meningismus Respiratory exam: Present: normal lung sounds bilaterally. Absent: respiratory distress, wheezes Cardiovascular Exam: Present: regular rate, normal rhythm GI/Abdominal exam: Present: soft. Absent: distended, tenderness, guarding Neurological exam: Present: alert, oriented X3, CN II-XII intact. Absent: motor sensory deficit Psychiatric exam: Present: normal affect, normal mood Skin exam: Present: warm, dry, intact. Absent: cyanosis, diaphoretic Course Vital Signs 12/19/18 12/19/18 12/19/18 19:11 20:30 21:00 Temperature 97.8 F Pulse Rate 86 81 80 Respiratory 16 16 19 Rate Blood Pressure 147/68 137/98 121/63 O2 Sat by Pulse 98 95 94 L Oximetry 12/19/18 21:30 Temperature Pulse Rate 78 Respiratory 24 Rate Blood Pressure 112/77 O2 Sat by Pulse 95 Oximetry EKG Findings - EKG Comments: EKG Findings:: EKG shows no sinus rhythm no ST segment changes, T waves are upright, ventricular rate of 80, HI interval 180, QRS duration 74, QTC 438 Medical Decision Making - Medical Decision Making 58-year-old female history of COPD presents with intermittent chest pain throughout the day today. Pain is atypical, lasting several seconds with some residual discomfort. EKG shows no signs of definitive acute ischemia, no ST segment elevation. Patient has stable vital signs. She is well-appearing. White blood cell count mildly elevated 11.9, hemoglobin stable, normal CMP, initial troponin is negative. Chest x-ray negative for acute cardio pulmonary disease. Given the patient's risk factors, she will be kept for serial cardiac enzymes, telemetry, cardiology consultation. Case is discussed with admitting physician, will accept. - Lab Data Result diagrams: 12/19/18 19:40 12/19/18 19:40 Lab Results 12/19/18 12/19/18 12/19/18 Range/Units 19:40 19:40 19:40 WBC 11.9 H (3.8-10.6) k/uL RBC 4.84 (3.80-5.40) m/uL Hgb 14.0 (11.4-16.0) gm/dL Hct 42.3 (34.0-46.0) % MCV 87.5 (80.0-100.0) fL MCH 28.9 (25.0-35.0) pg MCHC 33.0 (31.0-37.0) g/dL RDW 13.3 (11.5-15.5) % Plt Count 244 (150-450) k/uL Neutrophils % 56 % Lymphocytes % 34 % Monocytes % 5 % Eosinophils % 4 % Basophils % 1 % Neutrophils # 6.6 (1.3-7.7) k/uL Lymphocytes # 4.0 (1.0-4.8) k/uL Monocytes # 0.6 (0-1.0) k/uL Eosinophils # 0.4 (0-0.7) k/uL Basophils # 0.1 (0-0.2) k/uL PT 9.8 (9.0-12.0) sec INR 0.9 (<1.2) APTT 24.8 (22.0-30.0) sec Sodium 138 (137-145) mmol/L Potassium 4.6 (3.5-5.1) mmol/L Chloride 105 (98-107) mmol/L Carbon Dioxide 25 (22-30) mmol/L Anion Gap 8 mmol/L BUN 14 (7-17) mg/dL Creatinine 0.78 (0.52-1.04) mg/dL Est GFR (CKD-EPI)AfAm >90 (>60 ml/min/1.73 sqM) Est GFR (CKD-EPI)NonAf 86 (>60 ml/min/1.73 sqM) Glucose 103 H (74-99) mg/dL Calcium 9.2 (8.4-10.2) mg/dL Magnesium 1.9 (1.6-2.3) mg/dL Total Bilirubin 0.4 (0.2-1.3) mg/dL AST 28 (14-36) U/L ALT 48 (9-52) U/L Alkaline Phosphatase 110 (38-126) U/L Total Creatine Kinase (30-135) U/L CK-MB (CK-2) (0.0-2.4) ng/mL CK-MB (CK-2) Rel Index Troponin I (0.000-0.034) ng/mL Total Protein 7.4 (6.3-8.2) g/dL Albumin 4.4 (3.5-5.0) g/dL 12/19/18 Range/Units 19:40 WBC (3.8-10.6) k/uL RBC (3.80-5.40) m/uL Hgb (11.4-16.0) gm/dL Hct (34.0-46.0) % MCV (80.0-100.0) fL MCH (25.0-35.0) pg MCHC (31.0-37.0) g/dL RDW (11.5-15.5) % Plt Count (150-450) k/uL Neutrophils % % Lymphocytes % % Monocytes % % Eosinophils % % Basophils % % Neutrophils # (1.3-7.7) k/uL Lymphocytes # (1.0-4.8) k/uL Monocytes # (0-1.0) k/uL Eosinophils # (0-0.7) k/uL Basophils # (0-0.2) k/uL PT (9.0-12.0) sec INR (<1.2) APTT (22.0-30.0) sec Sodium (137-145) mmol/L Potassium (3.5-5.1) mmol/L Chloride (98-107) mmol/L Carbon Dioxide (22-30) mmol/L Anion Gap mmol/L BUN (7-17) mg/dL Creatinine (0.52-1.04) mg/dL Est GFR (CKD-EPI)AfAm (>60 ml/min/1.73 sqM) Est GFR (CKD-EPI)NonAf (>60 ml/min/1.73 sqM) Glucose (74-99) mg/dL Calcium (8.4-10.2) mg/dL Magnesium (1.6-2.3) mg/dL Total Bilirubin (0.2-1.3) mg/dL AST (14-36) U/L ALT (9-52) U/L Alkaline Phosphatase (38-126) U/L Total Creatine Kinase 78 (30-135) U/L CK-MB (CK-2) 0.8 (0.0-2.4) ng/mL CK-MB (CK-2) Rel Index 1.0 Troponin I <0.012 (0.000-0.034) ng/mL Total Protein (6.3-8.2) g/dL Albumin (3.5-5.0) g/dL Disposition Clinical Impression: Chest pain Disposition: ADMITTED IP TO THIS [facility] Condition: Stable Is patient prescribed a controlled substance at d/c from ED?: No Referrals: Estefania Garg MD [Primary Care Provider] - 1-2 days Decision to Admit Reason: Admit from EC Decision Date: 12/19/18 Decision Time: 22:37
[2018-12-19 20:02] LABS: ALT 48 U/L (9-52); AST 28 U/L (14-36); Albumin 4.4 g/dL (3.5-5.0); Alkaline Phosphatase 110 U/L (38-126); Anion Gap 8 mmol/L; Blood Urea Nitrogen 14 mg/dL (7-17); Calcium 9.2 mg/dL (8.4-10.2); Carbon Dioxide 25 mmol/L (22-30); Chloride 105 mmol/L (98-107); Glucose 103 mg/dL (74-99); Magnesium 1.9 mg/dL (1.6-2.3); Potassium 4.6 mmol/L (3.5-5.1); Sodium 138 mmol/L (137-145); Total Bilirubin 0.4 mg/dL (0.2-1.3); Total Protein 7.4 g/dL (6.3-8.2)
[2018-12-19 20:03] LABS: INR 0.9 (<1.2); Partial Thromboplastin Time 24.8 sec (22.0-30.0); Prothrombin Time 9.8 sec (9.0-12.0)
--- NOTE | 2018-12-19 20:09 | XR ---
EXAMINATION TYPE: XR chest 2V DATE OF EXAM: 12/19/2018 COMPARISON: 12/11/2017 HISTORY: Chest pain TECHNIQUE: Frontal and lateral views of the chest are obtained. FINDINGS: Heart and mediastinum are normal. Lungs are clear. Diaphragm is normal. Bony thorax appear s normal. There are chest leads. IMPRESSION: No active cardiac pulmonary disease. Normal heart. No change.
[2018-12-19 20:18] LABS: Creatine Kinase 78 U/L (30-135)
[2018-12-19 20:31] LABS: Creatine Kinase MB 0.8 ng/mL (0.0-2.4); Troponin I <0.012 ng/mL (0.000-0.034)
[2018-12-19] MEDS ORDERED: ASPIRIN 325 MG TAB PO STA (22:21)
[2018-12-19] MEDS ORDERED: NITROGLYCERIN SL TABS 0.4 MG TAB SUBLINGUAL PRN (22:21)
[2018-12-19] MEDS ORDERED: NALOXONE 0.4 MG/ML 1 ML VIAL IV PRN (22:22)
[2018-12-19] MEDS ORDERED: ACETAMINOPHEN TAB 325 MG TAB PO PRN (22:22)
[2018-12-19] MEDS ORDERED: MORPHINE SULFATE 4 MG/ML SYRINGE IV PRN (22:22)
[2018-12-19] MEDS ORDERED: ONDANSETRON 4 MG/2 ML VIAL IVP PRN (22:22)
[2018-12-19] MEDS ORDERED: ALBUTEROL NEBULIZED 2.5 MG/3 ML INHALATION PRN (22:23)
[2018-12-20] MEDS ORDERED: PANTOPRAZOLE 40 MG TABLET PO SCH (07:30)
[2018-12-20] MEDS ORDERED: amLODIPine 5 MG TAB PO ONE (08:15)
[2018-12-20 08:18] VITALS: RESP 16
[2018-12-20] MEDS ORDERED: METOPROLOL TARTRATE 25 MG TAB PO SCH ×2 (09:00→21:00)
[2018-12-20] MEDS ORDERED: CLOPIDOGREL 75 MG TAB PO SCH (09:00)
[2018-12-20] MEDS ORDERED: ASPIRIN 81 MG PO SCH (09:00)
[2018-12-20] MEDS ORDERED: NICOTINE 14MG/24HR PATCH TRANSDERM SCH (09:00)
[2018-12-20 09:33] LABS: Basophils # (A) 0.1 k/uL (0-0.2); Basophils % (A) 2 %; Eosinophils # (A) 0.3 k/uL (0-0.7); Eosinophils % (A) 4 %; HCT 43.1 % (34.0-46.0); HGB 14.4 gm/dL (11.4-16.0); Lymphocytes # (A) 2.1 k/uL (1.0-4.8); Lymphocytes % (A) 26 %; MCHC 33.4 g/dL (31.0-37.0); Mean Platelet Volume 7.5; Monocytes # (A) 0.5 k/uL (0-1.0); Monocytes % (A) 6 %; Neutrophils # (A) 4.9 k/uL (1.3-7.7); Neutrophils % (A) 61 %; Platelet Count 240 k/uL (150-450); RBC 4.95 m/uL (3.80-5.40); RDW 13.5 % (11.5-15.5)
[2018-12-20 10:09] LABS: ALT 47 U/L (9-52); AST 23 U/L (14-36); Albumin 4.2 g/dL (3.5-5.0); Alkaline Phosphatase 108 U/L (38-126); Anion Gap 8 mmol/L; Blood Urea Nitrogen 11 mg/dL (7-17); Calcium 9.6 mg/dL (8.4-10.2); Carbon Dioxide 25 mmol/L (22-30); Chloride 107 mmol/L (98-107); Glucose 103 mg/dL (74-99); Potassium 4.4 mmol/L (3.5-5.1); Sodium 140 mmol/L (137-145); Total Bilirubin 0.5 mg/dL (0.2-1.3); Total Protein 7.1 g/dL (6.3-8.2)
[2018-12-20] MEDS ORDERED: DOBUTamine DRIP for NUC MED 500 MG in DEXTROSE/WATER 1 250ML.BAG IV ONE (10:57)
[2018-12-20] MEDS ORDERED: ATROPINE SULFATE 0.1 MG/ML 10ML SYRINGE ONE (11:40)
--- NOTE | 2018-12-20 11:44 | P.CRDCN ---
History of Present Illness History of present illness: This is a pleasant 58-year-old female past medical history significant for coronary artery disease status post non-ST elevated myocardial infarction November 2017. At that time she had an 80% lesion in the mid RCA and a 40% lesion in the LAD. She underwent successful angioplasty of the RCA at that time. She also has hypertension, dyslipidemia and unfortunately continues to smoke. She follows in the office with Dr. Morgan. We've asked to see her in consultation for symptoms of chest pain. She states all day yesterday she was feeling nonspecific sharp pains in left precordial region. She states it almost felt like a small jolt to her chest that was occurring intermittently with no specific aggravating factor. She denies radiation to the arm, neck, back or jaw. She denies associated shortness of breath, dizziness, nausea, vomiting, diaphoresis or palpitations. She states November of last year when she suffered her heart attack or symptoms of a similar indigestion. She denies any indigestion type symptoms this time there is no burning in the chest. EKG reveals sinus mechanism with poor R-wave progression, this is consistent with previous EKG. Chest x-ray is negative for any acute cardiopulmonary process. Laboratory data reviewed, WBC on admission 11.9, repeat this morning 8, labeled 14.4, platelets 240, sodium 140, potassium 4.4, creatinine 0.78, cardiac enzymes negative 3, magnesium 1.9. Current cardiac medications include amlodipine 5 mg daily, Lopressor 75 mg in the morning and 50 mg at bedtime, Plavix 75 mg daily, atorvastatin 40 mg daily and aspirin 81 mg twice a day. Most recent echocardiogram obtained in the office March 2018 reveals preserved left ventricular systolic function with ejection fraction 55%, mildly elevated PA pressures and mild aortic insufficiency noted. At the time of my exam: CONSTITUTIONAL: Denies fever. Denies chills. EYES: Denies blurred vision. Denies vision changes. Denies eye pain. EARS, NOSE, MOUTH & THROAT: Denies headache. Denies sore throat. Denies ear pain. CARDIOVASCULAR: Denies chest pain. Denies shortness of breath. Denies orthopnea. Denies PND. Denies palpitations. RESPIRATORY: Denies cough. GASTROINTESTINAL: Denies abdominal pain. Denies diarrhea. Denies constipation. Denies nausea. Denies vomiting. MUSCULOSKELETAL: Denies myalgias. INTEGUMENTARY: Denies pruitis. Denies rash. NEUROLOGIC: Denies numbness. Denies tingling. Denies weakness. PSYCHIATRIC: Denies anxiety. Denies depression. ENDOCRINE: Denies fatigue. Denies weight change. Denies polydipsia. Denies polyurina. GENITOURINARY: Denies burning, hematuria or urgency with micturation. HEMATOLOGIC: Denies history of anemia. Denies bleeding. Blood pressure 119/61 heart rate 72 afebrile maintaining oxygen saturation on room air GENERAL: This is a 58-year-old occasion female in no apparent distress at the time of my examination. HEENT: Head is atraumatic, normocephalic. Pupils are equal, round. Sclerae anicteric. Conjunctivae are clear. Mucous membranes of the mouth are moist. Neck is supple. There is no jugular venous distention. No carotid bruit is heard. LUNGS: Clear to auscultation no wheezes, rales or rhonchi. No chest wall tenderness is noted on palpation or with deep breathing. Diminished bilaterally. HEART: Regular rate and rhythm with systolic ejection murmur at the base, rubs or gallops. S1 and S2 heard. ABDOMEN: Soft, nontender. Bowel sounds are heard. No organomegaly noted. EXTREMITIES: No evidence of peripheral edema and no calf tenderness noted. VASCULAR: Radial and dorsalis pedis pulses palpated, no evidence of clubbing. NEUROLOGIC: Patient is awake, alert and oriented x3. ASSESSMENT Precordial chest pain, atypical for angina. An acute coronary event has been ruled out. History of coronary artery disease status post non-ST elevated myocardial infarction and stent placement to the mid RCA maintained on dual antiplatelet therapy Hypertension Dyslipidemia Chronic nicotine dependence PLAN An acute coronary event has been ruled out. Obtain 2-D echocardiogram and Doppler study to assess cardiac structure and function. Perform stress echocardiogram to assess for stress-induced cardiac ischemia. If stress test is normal she is stable from a cardiac perspective. Smoking cessation recommended. Follow-up with Dr. Morgan upon discharge. Thank you kindly for this consultation. Nurse Practitioner note has been reviewed, I agree with a documented findings and plan of care. Patient was seen and examined. Past Medical History Past Medical History: CVA/TIA, GERD/Reflux, Osteoarthritis (OA) Additional Past Medical History / Comment(s): arthrits (neck)right carotid stenosis, TIA, recent sinus infections"took 4 rounds of abx and some steroids ) History of Any Multi-Drug Resistant Organisms: None Reported Past Surgical History: Appendectomy, Section, Cholecystectomy Additional Past Surgical History / Comment(s): x2 Past Anesthesia/Blood Transfusion Reactions: Previous Problems w/ Anesthesia Additional Past Anesthesia/Blood Transfusion Reaction / Comment(s): "spinal headache" lasted 12 hours Past Psychological History: Anxiety, Depression Smoking Status: Current every day smoker - Past Family History Mother Family Medical History: Cancer, Coronary Artery Disease (CAD), Diabetes Mellitus , Myocardial Infarction ([place]) Additional Family Medical History / Comment(s): leukemia Father Family Medical History: Coronary Artery Disease (CAD), CVA/TIA, Hypertension, Myocardial Infarction ([place]) Additional Family Medical History / Comment(s): quad cabg and valve replacement Medications and Allergies Home Medications Medication Instructions Recorded Confirmed Type Albuterol Nebulized [Ventolin 2.5 mg INHALATION RT-QID PRN 12/11/17 12/19/18 History Nebulized] Citalopram Hydrobromide [CeleXA] 10 mg PO HS 12/11/17 12/19/18 History Cyclobenzaprine [Flexeril] 10 mg PO HS 12/11/17 12/19/18 History Fluticasone Nasal [place] [Flonase 2 spr EA NOSTRIL DAILY 12/11/17 12/19/18 History Nasal [place]] Omeprazole [PriLOSEC] 20 mg PO DAILY 12/11/17 12/19/18 History Atorvastatin [Lipitor] 40 mg PO HS #30 tab 12/13/17 12/19/18 Rx Clopidogrel [Plavix] 75 mg PO DAILY #30 tab 12/13/17 12/19/18 Rx Nitroglycerin Sl Tabs [Nitrostat] 0.4 mg SUBLINGUAL Q5M PRN #25 tab 12/13/17 Rx amLODIPine [Norvasc] 5 mg PO HS #30 tab 12/13/17 12/19/18 Rx Aspirin 81 mg PO BID 12/19/18 12/19/18 History Metoprolol Tartrate [Lopressor] 50 mg PO HS 12/19/18 12/19/18 History Metoprolol Tartrate [Lopressor] 75 mg PO QAM 12/19/18 12/19/18 History Allergies Allergy/AdvReac Type Severity Reaction Status Date / Time latex Allergy Rash/Hives Verified 12/19/18 20:15 losartan Allergy Rash/Hives Verified 12/19/18 20:15 Physical Exam Vitals: Vital Signs Temp Pulse Pulse Resp BP BP Pulse Ox 12/20/18 10:19 72 16 119/61 94 L 12/20/18 08:41 165/112 12/20/18 08:14 98.1 F 80 16 98 12/20/18 07:42 98.9 F 79 18 105/69 98 12/20/18 06:31 97.7 F 88 16 117/56 96 12/20/18 04:00 76 16 105/65 93 L 12/19/18 21:30 78 24 112/77 95 12/19/18 21:00 80 19 121/63 94 L 12/19/18 20:30 81 16 137/98 95 12/19/18 19:11 97.8 F 86 16 147/68 98 Intake and Output 12/19/18 12/20/18 12/20/18 22:59 06:59 14:59 Other: Weight 62.596 kg Results 12/20/18 09:11 12/20/18 09:11 Cardiac Enzymes 12/19/18 12/19/18 12/20/18 Range/Units 19:40 19:40 01:37 AST 28 (14-36) U/L CK-MB (CK-2) 0.8 (0.0-2.4) ng/mL Troponin I <0.012 <0.012 (0.000-0.034) ng/mL 12/20/18 12/20/18 Range/Units 09:11 09:11 AST 23 (14-36) U/L CK-MB (CK-2) (0.0-2.4) ng/mL Troponin I <0.012 (0.000-0.034) ng/mL Coagulation 12/19/18 Range/Units 19:40 PT 9.8 (9.0-12.0) sec APTT 24.8 (22.0-30.0) sec CBC 12/19/18 12/20/18 Range/Units 19:40 09:11 WBC 11.9 H 8.0 (3.8-10.6) k/uL RBC 4.84 4.95 (3.80-5.40) m/uL Hgb 14.0 14.4 (11.4-16.0) gm/dL Hct 42.3 43.1 (34.0-46.0) % Plt Count 244 240 (150-450) k/uL Comprehensive Metabolic Panel 12/19/18 12/20/18 Range/Units 19:40 09:11 Sodium 138 140 (137-145) mmol/L Potassium 4.6 4.4 (3.5-5.1) mmol/L Chloride 105 107 (98-107) mmol/L Carbon Dioxide 25 25 (22-30) mmol/L BUN 14 11 (7-17) mg/dL Creatinine 0.78 0.78 (0.52-1.04) mg/dL Glucose 103 H 103 H (74-99) mg/dL Calcium 9.2 9.6 (8.4-10.2) mg/dL AST 28 23 (14-36) U/L ALT 48 47 (9-52) U/L Alkaline Phosphatase 110 108 (38-126) U/L Total Protein 7.4 7.1 (6.3-8.2) g/dL Albumin 4.4 4.2 (3.5-5.0) g/dL Current Medications Generic Name Dose Route Start Last Admin Trade Name Freq PRN Reason Stop Dose Admin Acetaminophen 650 mg 12/19/18 22:22 Tylenol Tab PO Q6HR PRN Mild Pain or Fever > 100.5 Albuterol Sulfate 2.5 mg 12/19/18 22:23 Ventolin Nebulized INHALATION RT-QID PRN Shortness Of Breath Amlodipine Besylate 5 mg 12/20/18 21:00 Norvasc PO HS BETINA Aspirin 81 mg 12/20/18 09:00 12/20/18 08:35 Aspirin PO 81 mg BID BETINA Administration Atorvastatin Calcium 40 mg 12/20/18 21:00 Lipitor PO HS BETINA Clopidogrel Bisulfate 75 mg 12/20/18 09:00 12/20/18 08:35 Plavix PO 75 mg DAILY BETINA Administration Cyclobenzaprine HCl 10 mg 12/20/18 21:00 Flexeril PO HS BETINA Dobutamine HCl/Dextrose 500 mg 250 mls @ 18.77 mls/hr 12/20/18 10:57 / IV Solution IV 12/21/18 00:16 .[id number] ONE Protocol 10 MCG/KG/MIN Metoprolol Tartrate 50 mg 12/20/18 21:00 Lopressor PO HS BETINA Metoprolol Tartrate 75 mg 12/20/18 09:00 12/20/18 08:36 Lopressor PO 75 mg QAM BETINA Administration Morphine Sulfate 4 mg 12/19/18 22:22 Morphine Sulfate (Inj) IV Q4HR PRN Severe Pain Naloxone HCl 0.2 mg 12/19/18 22:22 Narcan IV Q2M PRN Opioid Reversal Nicotine 1 patch 12/20/18 09:00 Habitrol 14mg/24hr Patch TRANSDERM DAILY [facility] Nitroglycerin 0.4 mg 12/19/18 22:21 Nitrostat SUBLINGUAL Q5M PRN Chest Pain Ondansetron HCl 4 mg 12/19/18 22:22 Zofran IVP Q8HR PRN Nausea And Vomiting Pantoprazole Sodium 40 mg 12/20/18 07:30 12/20/18 06:29 Protonix PO 40 mg DAILY@0730 [facility] Administration Intake and Output 12/19/18 12/20/18 12/20/18 22:59 06:59 14:59 Other: Weight 62.596 kg 12/20/18 09:11 12/20/18 09:11
--- NOTE | 2018-12-20 13:05 | ECHOS ---
STRESS ECHOCARDIOGRAM DOBUTAMINE STRESS ECHO DATE OF SERVICE: 12/20/2018 INDICATIONS: Chest pain. MEDICATIONS: BASELINE HEART RATE: 82 BASELINE BLOOD PRESSURE: 115/68 MAXIMUM HEART RATE: 133 MAXIMUM BLOOD PRESSURE: 148/65 85% MPHR: 139 100% MPHR: 164 METS: MAXIMUM STAGE REACHED: TOTAL EXERCISE TIME: CLINICAL INFORMATION: STRESS DATA: Pretesting physical examination showed a heart rate of 82, pressure is 115/68 mmHg. Baseline EKG showed sinus mechanism. Dobutamine infusion at a dose of 10 mcg/kg per minute was initiated and increased to 40 mcg/kg per minute per protocol. Max heart rate was 133 which is about 81% of maximum predicted heart rate. Maximum blood pressure was 148/65 mmHg. Clinically the patient did not have any symptoms of chest pain or discomfort and the EKG did not show any significant ST or T wave abnormalities concerning for ischemia. ECHOCARDIOGRAM IMAGES: From parasternal long axis view, parasternal short axis view, apical 4 chamber and apical 2 chamber view were obtained at the baseline images, at low dose dobutamine infusion, at peak heart rate, as well as on recovery and the echocardiogram showed good augmentation in the left ventricular systolic function without any evidence of wall motion abnormalities concerning for for ischemia. CONCLUSION: 1. Normal EKG in response to dobutamine. 2. Normal echocardiogram in response to dobutamine. MMODL / IJN: [id number] /
--- NOTE | 2018-12-20 13:25 | P.HPIM ---
History of Present Illness H&P Date: 12/20/18 This is a 58-year-old female patient of Dr. Garg. Patient presented to the hospital with complaints of chest pain. Patient reports that although yesterday she had sharp pains to the left side that occurred intermittently. Patient does have a past medical history of coronary artery disease status post non-ST elevated [place] in November 2017 in which she received a stent to RCA. Patient additional medical history includes CVA, GERD, osteoarthritis, cholecystectomy and appendectomy. Patient also is a current every day smoker. Troponins negative 3. Chest x-ray completed in ER showing no active cardiac pulmonary disease. Normal heart. No change. EKG completed showing normal sinus rhythm, possible left atrial enlargement. Patient reports she has been taking her meds as prescribed at home include Plavix has been. Cardiology services have been consulted stress test and 2-D echo has been ordered. At this time patient denies chest pain or shortness breath. Patient denies nausea vomiting or diarrhea. Patient denies any urinary burning or frequency. Review of Systems Please refer to HPI otherwise unremarkable Past Medical History Past Medical History: CVA/TIA, GERD/Reflux, Osteoarthritis (OA) Additional Past Medical History / Comment(s): arthrits (neck)right carotid stenosis, TIA, recent sinus infections"took 4 rounds of abx and some steroids ) History of Any Multi-Drug Resistant Organisms: None Reported Past Surgical History: Appendectomy, Section, Cholecystectomy Additional Past Surgical History / Comment(s): x2 Past Anesthesia/Blood Transfusion Reactions: Previous Problems w/ Anesthesia Additional Past Anesthesia/Blood Transfusion Reaction / Comment(s): "spinal headache" lasted 12 hours Past Psychological History: Anxiety, Depression Smoking Status: Current every day smoker - Past Family History Mother Family Medical History: Cancer, Coronary Artery Disease (CAD), Diabetes Mellitus , Myocardial Infarction ([place]) Additional Family Medical History / Comment(s): leukemia Father Family Medical History: Coronary Artery Disease (CAD), CVA/TIA, Hypertension, Myocardial Infarction ([place]) Additional Family Medical History / Comment(s): quad cabg and valve replacement Medications and Allergies Home Medications Medication Instructions Recorded Confirmed Type Albuterol Nebulized [Ventolin 2.5 mg INHALATION RT-QID PRN 12/11/17 12/19/18 History Nebulized] Citalopram Hydrobromide [CeleXA] 10 mg PO HS 12/11/17 12/19/18 History Cyclobenzaprine [Flexeril] 10 mg PO HS 12/11/17 12/19/18 History Fluticasone Nasal [place] [Flonase 2 spr EA NOSTRIL DAILY 12/11/17 12/19/18 History Nasal [place]] Omeprazole [PriLOSEC] 20 mg PO DAILY 12/11/17 12/19/18 History Atorvastatin [Lipitor] 40 mg PO HS #30 tab 12/13/17 12/19/18 Rx Clopidogrel [Plavix] 75 mg PO DAILY #30 tab 12/13/17 12/19/18 Rx Nitroglycerin Sl Tabs [Nitrostat] 0.4 mg SUBLINGUAL Q5M PRN #25 tab 12/13/17 Rx amLODIPine [Norvasc] 5 mg PO HS #30 tab 12/13/17 12/19/18 Rx Aspirin 81 mg PO BID 12/19/18 12/19/18 History Metoprolol Tartrate [Lopressor] 50 mg PO HS 12/19/18 12/19/18 History Metoprolol Tartrate [Lopressor] 75 mg PO QAM 12/19/18 12/19/18 History Allergies Allergy/AdvReac Type Severity Reaction Status Date / Time latex Allergy Rash/Hives Verified 12/19/18 20:15 losartan Allergy Rash/Hives Verified 12/19/18 20:15 Physical Exam Vitals: Vital Signs Temp Pulse Pulse Resp BP BP Pulse Ox 12/20/18 10:19 72 16 119/61 94 L 12/20/18 08:41 165/112 12/20/18 08:14 98.1 F 80 16 98 12/20/18 07:42 98.9 F 79 18 105/69 98 12/20/18 06:31 97.7 F 88 16 117/56 96 12/20/18 04:00 76 16 105/65 93 L 12/19/18 21:30 78 24 112/77 95 12/19/18 21:00 80 19 121/63 94 L 12/19/18 20:30 81 16 137/98 95 12/19/18 19:11 97.8 F 86 16 147/68 98 Intake and Output 12/19/18 12/20/18 12/20/18 22:59 06:59 14:59 Other: Weight 62.596 kg 62.596 kg Head normocephalic Neck supple Lungs clear to auscultation bilaterally no wheezing or crackles Heart regular rate and rhythm S1-S2, no rub or gallop Abdomen is soft nontender nondistended positive bowel sounds no hepatosplenomegaly Extremities no edema Neuro alert and orientated to 3 Results CBC & Chem 7: 12/20/18 09:11 12/20/18 09:11 Labs: Abnormal Lab Results - Last 24 Hours (Table) 12/19/18 12/19/18 12/20/18 Range/Units 19:40 19:40 09:11 WBC 11.9 H (3.8-10.6) k/uL Glucose 103 H 103 H (74-99) mg/dL Assessment and Plan Assessment: 1. Chest pain. Troponins negative 3. Chest x-ray showing no active cardiopulmonary disease. Normal heart. No change. Cardiology service is consulted. Stress test and 2-D echo has been ordered.2.2. 2. History of coronary artery disease with previous stent placement to RCA in November 2017. Patient maintained on Plavix and aspirin 3. History of CVA 4. History of GERD 5. History of osteoarthritis 6. History of cholecystectomy 7. Nicotine dependence. Patient educated greater than 3 minutes on smoking cessation 8. History of anxiety and depression Time with Patient: Greater than 30 (Greater than 60% of the total time spent in counseling and coordination of care. I performed an examination of the patient and discussed their management with the Nurse Practitioner. I have reviewed the Nurse Practitioner's notes and agree with the documented findings and plan of care)
--- NOTE | 2018-12-20 13:28 | P.DS ---
Providers Date of admission: 12/19/18 22:38 Expected date of discharge: 12/20/18 Attending physician: Nicole Boston Consults: 12/19/18 22:22 Consult Physician Routine Consulting Provider: Tam Nelson Consult Reason/Comments: CP Do you want consulting provider notified?: Yes Primary care physician: Estefania Garg Hospital Course: Discharge diagnosis 1. Chest pain. Troponins negative 3. Chest x-ray showing no active cardiopulmonary disease. Normal heart. No change. Cardiology service is consulted. Stress test and 2-D echo has been ordered. stress test completed showing normal EKG response to dobutamine. Normal echocardiogram in response to dobutamine. Patient has been cleared for discharge from cardiology standpoint 2. History of coronary artery disease with previous stent placement to RCA in November 2017. Patient maintained on Plavix and aspirin 3. History of CVA 4. History of GERD 5. History of osteoarthritis 6. History of cholecystectomy 7. Nicotine dependence. Patient educated greater than 3 minutes on smoking cessation Hospital course This is a 58-year-old female patient of Dr. Garg. Patient presented to the hospital with complaints of chest pain. Patient reports that although yesterday she had sharp pains to the left side that occurred intermittently. Patient does have a past medical history of coronary artery disease status post non-ST elevated [place] in November 2017 in which she received a stent to RCA. Patient additional medical history includes CVA, GERD, osteoarthritis, cholecystectomy and appendectomy. Patient also is a current every day smoker. Troponins negative 3. Chest x-ray completed in ER showing no active cardiac pulmonary disease. Normal heart. No change. EKG completed showing normal sinus rhythm, possible left atrial enlargement. Patient reports she has been taking her meds as prescribed at home include Plavix has been. Cardiology services have been consulted stress test and 2-D echo has been ordered. At this time patient denies chest pain or shortness breath. Patient denies nausea vomiting or diarrhea. Patient denies any urinary burning or frequency. Stress test completed. Patient has been cleared by cardiology services. Patient educated again on the importance smoking cessation. At this time patient denies chest pain or shortness of breath. Patient denies nausea vomiting or diarrhea. Denies any urinary burning or frequency Patient Condition at Discharge: Stable Plan - Discharge Summary New Discharge Prescriptions: Continue Omeprazole [PriLOSEC] 20 mg PO DAILY Fluticasone Nasal [place] [Flonase Nasal [place]] 2 spr EA NOSTRIL DAILY Cyclobenzaprine [Flexeril] 10 mg PO HS Citalopram Hydrobromide [CeleXA] 10 mg PO HS Albuterol Nebulized [Ventolin Nebulized] 2.5 mg INHALATION RT-QID PRN PRN Reason: Shortness Of Breath amLODIPine [Norvasc] 5 mg PO HS #30 tab Atorvastatin [Lipitor] 40 mg PO HS #30 tab Clopidogrel [Plavix] 75 mg PO DAILY #30 tab Nitroglycerin Sl Tabs [Nitrostat] 0.4 mg SUBLINGUAL Q5M PRN #25 tab PRN Reason: Chest Pain Metoprolol Tartrate [Lopressor] 50 mg PO HS Metoprolol Tartrate [Lopressor] 75 mg PO QAM Aspirin 81 mg PO BID Discharge Medication List Albuterol Nebulized [Ventolin Nebulized] 2.5 mg INHALATION RT-QID PRN 12/11/17 [ History] Citalopram Hydrobromide [CeleXA] 10 mg PO HS 12/11/17 [History] Cyclobenzaprine [Flexeril] 10 mg PO HS 12/11/17 [History] Fluticasone Nasal [place] [Flonase Nasal [place]] 2 spr EA NOSTRIL DAILY 12/11/17 [ History] Omeprazole [PriLOSEC] 20 mg PO DAILY 12/11/17 [History] Atorvastatin [Lipitor] 40 mg PO HS #30 tab 12/13/17 [Rx] Clopidogrel [Plavix] 75 mg PO DAILY #30 tab 12/13/17 [Rx] Nitroglycerin Sl Tabs [Nitrostat] 0.4 mg SUBLINGUAL Q5M PRN #25 tab 12/13/17 [Rx ] amLODIPine [Norvasc] 5 mg PO HS #30 tab 12/13/17 [Rx] Aspirin 81 mg PO BID 12/19/18 [History] Metoprolol Tartrate [Lopressor] 50 mg PO HS 12/19/18 [History] Metoprolol Tartrate [Lopressor] 75 mg PO QAM 12/19/18 [History] Follow up Appointment(s)/Referral(s): Estefania Garg MD [Primary Care Provider] - 12/23/18 10:30 am (follow up appointment on December 23 at 1030 with Lei Avila NP ) Fozia Cobb MD [STAFF PHYSICIAN] - 1 Week Patient Instructions/Handouts: Angina (DC), Angina (GEN), Cardiac Stress Test ( DC), Stress Echocardiogram (DC) Discharge Disposition: HOME SELF-CARE
[2018-12-20 14:21] VITALS: BMI 26.0
[2018-12-20 14:24] VITALS: BP 127/78; PULSE 71; TEMP 97
--- NOTE | 2018-12-20 18:58 | ECHOF ---
Referral Reason: MEASUREMENTS -------- HEIGHT: 175.3 cm WEIGHT: 62.6 kg BP: IVSd: 1.2 cm (0.6 - 1.1) LVIDd: 3.6 cm (3.9 - 5.3) LVPWd: 1.0 cm (0.6 - 1.1) IVSs: 1.4 cm LVIDs: 2.8 cm LVPWs: 1.3 cm LAESV Index (A-L): 24.74 ml/m Ao Diam: 2.6 cm (2.0 - 3.7) LA Diam: 3.9 cm (2.7 - 3.8) MV EXCURSION: 18.048 mm (> 18.000) MV EF SLOPE: 70 mm/s (70 - 150) EPSS: 0.2 cm MV E [place]: 0.96 m/s MV DecT: 318 ms MV A [place]: 1.43 m/s MV E/A Ratio: 0.67 AV maxP.32 mmHg AV meanP.68 mmHg RAP: 5.00 mmHg RVSP: 30.35 mmHg FINDINGS -------- Sinus rhythm. This was a technically adequate study. The left ventricular size is normal. There is mild concentric left ventricular hypertrophy. Overa ll left ventricular systolic function is normal with, an EF between 55 - 60 %. The right ventricle is normal in size. The left atrial size is normal. The right atrial size is normal. There is moderate aortic regurgitation. There is mild aortic stenosis present. Peak/mean gradient across the Aortic Valve is 28.32mmHg / 14.68mmHg. Moderate mitral annular calcification present. Mild mitral regurgitation is present. The peak an d mean MV gradients are 9.77mmHg 3.57mmHg as measured by doppler. Mild mitral stenosis. Mild tricuspid regurgitation present. There is no evidence of pulmonary hypertension. The right v entricular systolic pressure, as measured by Doppler, is 30.35mmHg. There is no pulmonic regurgitation present. The aortic root size is normal. There is no pericardial effusion. CONCLUSIONS -------- 1. The left ventricular size is normal. 2. There is mild concentric left ventricular hypertrophy. 3. Overall left ventricular systolic function is normal with, an EF between 55 - 60 %. 4. The right ventricle is normal in size. 5. The left atrial size is normal. 6. The right atrial size is normal. 7. There is moderate aortic regurgitation. 8. There is mild aortic stenosis present. 9. Peak/mean gradient across the Aortic Valve is 28.32mmHg / 14.68mmHg. 10. Moderate mitral annular calcification present. 11. Mild mitral regurgitation is present. 12. The peak and mean MV gradients are 9.77mmHg 3.57mmHg as measured by doppler. 13. Mild mitral stenosis. 14. Mild tricuspid regurgitation present. 15. There is no evidence of pulmonary hypertension. 16. The right ventricular systolic pressure, as measured by Doppler, is 30.35mmHg. 17. There is no pulmonic regurgitation present. 18. The aortic root size is normal. 19. There is no pericardial effusion. LIBRARY SALES CONSULTANT: Marybel Moore RDCS
[2018-12-20] MEDS ORDERED: ATORVASTATIN 40 MG TAB PO SCH (21:00)
[2018-12-20] MEDS ORDERED: CYCLOBENZAPRINE 10 MG TAB PO SCH (21:00)
[2018-12-20] MEDS ORDERED: amLODIPine 5 MG TAB PO SCH (21:00)
== END 2018-12-20 14:56 | disposition home or self-care (01) ==
LOC: EC 19:08 → 1SOBS 22:38
PROVIDERS: ADMIT Internal Medicine; ATTEND Internal Medicine
DX: R07.89 Other chest pain (principal); E78.5 Hyperlipidemia, unspecified; F17.200 Nicotine dependence, unspecified, uncomplicated; Z71.6 Tobacco abuse counseling; F32.9 Major depressive disorder, single episode, unspecified; F41.9 Anxiety disorder, unspecified; I10 Essential (primary) hypertension; I25.10 Atherosclerotic heart disease of native coronary artery without angina pectoris; I25.2 Old myocardial infarction; M19.90 Unspecified osteoarthritis, unspecified site; J44.9 Chronic obstructive pulmonary disease, unspecified; K21.9 Gastro-esophageal reflux disease without esophagitis; Z79.02 Long term (current) use of antithrombotics/antiplatelets; Z79.82 Long term (current) use of aspirin; Z79.899 Other long term (current) drug therapy; Z86.73 Personal history of transient ischemic attack (TIA), and cerebral infarction without residual deficits; Z90.49 Acquired absence of other specified parts of digestive tract; Z95.5 Presence of coronary angioplasty implant and graft; Z88.8 Allergy status to other drugs, medicaments and biological substances; Z91.040 Latex allergy status; Z80.6 Family history of leukemia; Z82.49 Family history of ischemic heart disease and other diseases of the circulatory system; Z83.3 Family history of diabetes mellitus
CPT/HCPCS: 99285; 36415; 93005; 93306; 80053 ×2; 82550; 82553; 83735; 84484 ×2; 85025 ×2; 85610; 85730; 71046; G0378 ×2; C8930; J1250; J0461; Q9950; 93351

== ENCOUNTER → 2019-02-24 | Outpatient (CLI) | payer OTHER ==
--- NOTE | 2019-02-26 10:45 | MM ---
Reason for exam: screening (asymptomatic). Last mammogram was performed 1 year and 10 months ago. History: Patient is postmenopausal and had first child at age 38. Physical Findings: A clinical breast exam by your physician is recommended on an annual basis and results should be correlated with mammographic findings. MG 3D Screening Mammo W/Cad Bilateral CC and MLO view(s) were taken. Prior study comparison: April 11, 2017, mammogram, performed at [facility]. May 20, 2015, mammogram, performed at [facility]. The breast tissue is heterogeneously dense. This may lower the sensitivity of mammography. There is no discrete abnormality. No significant changes when compared with prior studies. ASSESSMENT: Negative, BI-RAD 1 RECOMMENDATION: Routine screening mammogram of both breasts in 1 year.
== END ==
LOC: RADMAMWWP 07:22
PROVIDERS: ATTEND Family Medicine
DX: Z12.31 Encounter for screening mammogram for malignant neoplasm of breast (principal)
CPT/HCPCS: 77063; 77067

== ENCOUNTER → 2020-07-20 | Outpatient (CLI) | payer OTHER ==
--- NOTE | 2020-07-21 11:10 | MM ---
Reason for exam: screening (asymptomatic). Last mammogram was performed 1 year and 5 months ago. History: Patient is postmenopausal and had first child at age 38. Physical Findings: A clinical breast exam by your physician is recommended on an annual basis and results should be correlated with mammographic findings. MG 3D Screening Mammo W/Cad Bilateral CC and MLO view(s) were taken. Prior study comparison: February 24, 2019, bilateral MG 3d screening mammo w/cad. April 11, 2017, mammogram, performed at [facility]. The breast tissue is heterogeneously dense. This may lower the sensitivity of mammography. There is no discrete abnormality. ASSESSMENT: Negative, BI-RAD 1 RECOMMENDATION: Routine screening mammogram of both breasts in 1 year.
== END | disposition home or self-care (01) ==
LOC: RADMAMWWP 14:24
PROVIDERS: ATTEND Family Medicine
DX: Z12.31 Encounter for screening mammogram for malignant neoplasm of breast (principal)
CPT/HCPCS: 77063; 77067

== ENCOUNTER → 2023-09-04 | Outpatient (CLI) | payer OTHER ==
--- NOTE | 2023-09-04 08:57 | BD ---
EXAMINATION TYPE: Axial Bone Density DATE OF EXAM: 09/04/2023 CLINICAL HISTORY: 63 years old Female. ICD-10 CODE: N95.1 MENOPAUSAL AND FEMALE CLIMACTERIC STATES Height: 60 Weight: 152.0 FRAX RISK QUESTIONS: Alcohol (3 or more units per day): no Family History (Parent hip fracture): Father Glucocorticoids (More than 3mos): yes, Prednisone for asthma History of Fracture in Adulthood: yes Secondary Osteoporosis: 1. Type 1 Diabetes: no 2. Hyperthyroidism: no 3. Menopause before 45: no 4. Malnutrition: no 5. Chronic liver disease: no Rheumatoid Arthritis: no Current Tobacco Use: yes RISK FACTORS HISTORY OF: Hip Fracture (Right/Left): no Spine Fracture: no History of Wrist Fracture: no Surgery to Spine/Hip(right/left)/Wrist (right/left): no Family History of Osteoporosis: no Active: no Diet low in dairy products/other sources of calcium: yes Postmenopausal woman: yes Take estrogen and/or progesterone medications: no Lost more than 2 inches in height since high school: no Frequent falls: no Poor Health: yes Hyperparathyroidism: no Adrenal Insufficiency: no MEDICATIONS: Prednisone or other steroids: On and off past year Thyroid Medications: yes Which medication: Levothyroxin How Long: past 3 months Osteoporosis Medications: no Additional Medications: Cholesterol Meds, Bp Meds, Reflux Meds, Anxiety Meds, Additional History: EXAM MEASUREMENTS: Bone mineral densitometry was performed using the [employer] System. Bone mineral density as measured about the Lumbar spine is: ----- L1-L4(G/cm2): 0.993 T Score Values are as follows: ----- L1: -1.9 ----- L2: -2.1 ----- L3: -1.6 ----- L4: -0.9 ----- L1-L4: -1.6 Z Score Values are as follows: ----- L1: -0.8 ----- L2: -1.0 ----- L3: -0.4 ----- L4: 0.3 ----- L1-L4: -0.4 Baseline Study Bone mineral density about the R hip (g/cm2): 0.793 Bone mineral density about the L hip (g/cm2) 0.797 T Score values are as follows: -----R Neck: -2.1 -----L Neck: -2.4 -----R Total: -1.7 -----L Total: -1.7 Z Score values are as follows: -----R Neck: -0.8 -----L Neck: -1.2 -----R Total: -0.8 -----L Total: -0.8 Baseline Study FRAX%s: The graph provided illustrates a 33.6% chance for a major osteoporotic fx and a 6.1% chance f or the hips probability for fx in 10 years time. IMPRESSION: Osteopenia (T Score between -2.5 and -1). There is slightly increased risk of fracture and the patient may be considered for treatment. Re-Screen 2-5 years. NOTE: T-SCORE=SD OF THE YOUNG ADULT MEAN.
== END | disposition home or self-care (01) ==
LOC: RADBDWWP 08:05
PROVIDERS: ATTEND Family Medicine
DX: M85.89 Other specified disorders of bone density and structure, multiple sites (principal); Z78.0 Asymptomatic menopausal state
CPT/HCPCS: 77080